=== PATIENT | female | born 1975 | race Caucasian/White ===

== ENCOUNTER → 2016-12-24 | Outpatient (CLI) | payer OTHER ==
[2016-12-24 13:25] LABS: Basophils # (A) 0.1 k/uL (0-0.2); Basophils % (A) 1 %; CH 30.1; CHCM 31.6; Eosinophils # (A) 0.2 k/uL (0-0.7); Eosinophils % (A) 2 %; HCT 44.4 % (34.0-46.0); HDW 2.42; HGB 13.9 gm/dL (11.4-16.0); Luc # (Auto) 0.11; Luc % (Auto) 1; Lymphocytes # (A) 2.8 k/uL (1.0-4.8); Lymphocytes % (A) 30 %; MCH 29.9 pg (25.0-35.0); MCHC 31.2 g/dL (31.0-37.0); MCV 95.9 fL (80.0-100.0); Mean Platelet Volume 6.7; Monocytes # (A) 0.4 k/uL (0-1.0); Monocytes % (A) 4 %; Neutrophils # (A) 5.8 k/uL (1.3-7.7); Neutrophils % (A) 62 %; RBC 4.63 m/uL (3.80-5.40); RDW 14.4 % (11.5-15.5); WBC 9.4 k/uL (3.8-10.6); WBC (Perox) 9.53
== END | disposition home or self-care (01) ==
LOC: LABPAT 13:01
PROVIDERS: ATTEND Obstetrics & Gynecology
DX: Z01.818 Encounter for other preprocedural examination (principal)
CPT/HCPCS: 85025

== ENCOUNTER 2017-01-03 06:50 | Day surgery (SDC) | payer OTHER ==
[2017-01-01 15:02] VITALS: BMI 36.8
--- NOTE | 2017-01-02 15:47 | P.HPOB ---
History of Present Illness H&P Date: 01/02/17 Chief Complaint: vulvar condyloma 41 year old presents for laser vaporization of condyloma. Review of Systems All systems: negative Constitutional: Denies chills, Denies fever Eyes: denies blurred vision, denies pain Ears, nose, mouth and throat: Denies headache, Denies sore throat Cardiovascular: Denies chest pain, Denies shortness of breath Respiratory: Denies cough Gastrointestinal: Denies abdominal pain, Denies diarrhea, Denies nausea, Denies vomiting Genitourinary: Denies dysuria, Denies hematuria Musculoskeletal: Denies myalgias Integumentary: Denies pruritus, Denies rash Neurological: Denies numbness, Denies weakness Psychiatric: Denies anxiety, Denies depression Endocrine: Denies fatigue, Denies weight change Past Medical History Past Medical History: Asthma, Neurologic Disorder (migraine) Additional Past Medical History / Comment(s): bursitis, chronic pain, GENITAL WARTS History of Any Multi-Drug Resistant Organisms: None Reported Past Surgical History: Cholecystectomy, Joint Replacement, Orthopedic Surgery, Tubal Ligation, Uterine Ablation Additional Past Surgical History / Comment(s): BILAT TKA. BILAT SCOPES. REVISION BILAT TKA. OATS PROCEDURE. COLONOSCOPIES Past Anesthesia/Blood Transfusion Reactions: No Reported Reaction Past Psychological History: No Psychological Hx Reported Smoking Status: Current every day smoker Past Alcohol Use History: None Reported Additional Past Alcohol Use History / Comment(s): SMOKES 1/2-1 PPD SINCE AGE 18 Past Drug Use History: None Reported - Past Family History Mother Family Medical History: Cancer Medications and Allergies Home Medications Medication Instructions Recorded Confirmed Type Fluticasone Nasal [place] [Flonase 2 spr EA NOSTRIL DAILY 01/01/17 01/01/17 History Nasal [place]] Loratadine [Loratadine] 10 mg PO DAILY 01/01/17 01/01/17 History Allergies Allergy/AdvReac Type Severity Reaction Status Date / Time desvenlafaxine succinate Allergy Hallucinati Verified 01/01/17 14:54 [From Pristiq] ons Penicillins Allergy Nausea & Verified 01/01/17 14:54 Vomiting Exam Osteopathic Statement: *. No significant issues noted on an osteopathic structural exam other than those noted in the History and Physical/Consult. HEart: RRR Lungs: CTAB ABdomen: soft, nontender Extremeties: neg shahida's Assessment and Plan (1) Genital warts Status: Acute Plan: 1. laser vaporization of condyloma
[~2017-01-03 06:50] MED LIST: DEXAMETHASONE SOD PHOSPHATE 10 MG/ML 1 ML VIAL IV ONE; HYDROmorphone 1 MG/ML 1 ML SYRINGE IVP PRN; LIDOCAINE 1% 20 ML VIAL (10MG/ML) FOR IV START INTRADERMA PRN; ONDANSETRON 4 MG/2 ML VIAL IVP ONE; Pre Op ABX Message 1 EACH MISC MISCELLANE ONE; SCOPOLAMINE 1.5MG/72HR PATCH TRANSDERM ONE
[2017-01-03 07:04] VITALS: RESP 16
[2017-01-03] MEDS: LACTATED RINGERS 1,000 ML IV SCH ×2 (07:14→09:56)
[2017-01-03] MEDS ORDERED: MIDAZOLAM 2 MG/2 ML VIAL ONE (08:12)
[2017-01-03] MEDS ORDERED: LIDOCAINE 1% INJ 10MG/ML (20 ML MDV) ONE (08:12)
[2017-01-03] MEDS ORDERED: SUCCINYLCHOLINE CHLORIDE 100 MG/5 ML SYR IV ONE (08:12)
[2017-01-03] MEDS ORDERED: fentaNYL (PF) 50 MCG/ML 2 ML AMP ONE (08:12)
[2017-01-03] MEDS ORDERED: PROPOFOL 10 MG/ML 20 ML VIAL IV ONE (08:12)
[2017-01-03] MEDS ORDERED: SILVER sulfADIAZINE Cream 400 GM 1 APPLIC APPLIC TOPICAL ONE (08:43)
[2017-01-03 09:33] VITALS: TEMP 97.8
[2017-01-03 10:59] VITALS: BP 118/75; PULSE 77
--- NOTE | 2017-01-07 12:51 | P.OP ---
Date of Procedure: 01/03/17 Preoperative Diagnosis: vulvar condyloma Postoperative Diagnosis: vulvar condyloma Procedure(s) Performed: laser ablation of vulvar condyloma and surgical excision of condyloma Anesthesia: ISATU Surgeon: Destinee Winston Estimated Blood Loss (ml): 10 Urine output (ml): 20 Pathology: other (condyloma) Condition: stable Disposition: PACU Operative Findings: multiple vulvar and perianal condyloma Description of Procedure: PAtient was taken to the operating room where general anesthesia was obtained without difficulty. She was prepped and draped in the normal sterile fashion, legs placed in candycane stirrups. Bladder was drained of all urine. Inspection of the vulva there were several condyloma along the clitoral scott, along both labia, an extreme amount in the perineal area between the vagina and the rectum, several along the rectum and 2 very large (2 cm) ones along the right buttock. The laser was set at a level of 5 W with pulse setting. The laser was directed towards any areas that showed condyloma and those areas were ablated down to the level of the subdermal tissue. Some areas did have some bleeding but this resolved. I did not ablate the areas that were at the level of the rectum and inside the rectum. There were 2 large, approximately 2 cm, condylomatous lesions along the right perianal area and right buttock. These were taken off using a scalpel. Stitches were placed for hemostasis and to close the skin. Silvadene cream was then placed over the entire vulva. Patient tolerated the procedure well, sponge and instrument counts are correct 2. She was taken to recovery in stable condition.
== END 2017-01-03 11:29 | disposition home or self-care (01) ==
LOC: OR 06:50
PROVIDERS: ATTEND Obstetrics & Gynecology
DX: A63.0 Anogenital (venereal) warts (principal); L72.0 Epidermal cyst; J45.909 Unspecified asthma, uncomplicated; G43.909 Migraine, unspecified, not intractable, without status migrainosus; G89.29 Other chronic pain; F17.200 Nicotine dependence, unspecified, uncomplicated; Z79.899 Other long term (current) drug therapy; Z88.0 Allergy status to penicillin; Z88.8 Allergy status to other drugs, medicaments and biological substances
CPT/HCPCS: 81025; 88305; 56515; 46922; 11402; J2250; J1100; J2405; J2001; J3010; J1170; J0330; J2704

== ENCOUNTER 2017-02-18 17:45 | Emergency (ER) | payer OTHER ==
[2017-02-18 18:03] VITALS: BP 133/88; PULSE 92; RESP 18; TEMP 97.4
--- NOTE | 2017-02-18 18:24 | ED ---
Upper Extremity HPI - General Chief Complaint: Extremity Injury, Upper Stated Complaint: R wrist pain Time Seen by Provider: 02/18/17 18:08 Source: patient Mode of arrival: ambulatory Limitations: no limitations - History of Present Illness Initial Comments: Patient is a 41-year-old right-handed white female presenting to the emergency department with chief complaint of right wrist pain. Patient states she has had right wrist pain on and off for years but recently the pain has increased to the point where she is having a difficult time holding onto a spoon when cooking secondary to the pain. Patient complains of occasional numbness to her right thumb and right index finger. Patient currently rates pain 8 out of 10, described as sharp and tingly, relief with rest, exacerbated with movement. Patient states that she she has seen Dr. Cheung many years ago for her right wrist pain without definite diagnosis. Patient states she has tried Motrin and Tylenol at home without significant relief. Patient denies recent illness, chills, fevers, nausea, vomiting, shortness of breath, or abdominal pain. Patient denies trauma or injury to her right upper extremity. 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 - Related Data Home Medications Medication Instructions Recorded Confirmed Fluticasone Nasal [place] [Flonase 2 spr EA NOSTRIL DAILY 01/01/17 01/03/17 Nasal [place]] Loratadine [Loratadine] 10 mg PO DAILY 01/01/17 01/03/17 Previous Rx's Medication Instructions Recorded Docusate [Colace] 100 mg PO BID #60 capsule 01/03/17 HYDROcodone/APAP 7.5-325MG [[place] 1 tab PO Q4H PRN #40 tab 01/03/17 7.5-325] Allergies Allergy/AdvReac Type Severity Reaction Status Date / Time desvenlafaxine succinate Allergy Hallucinati Verified 02/18/17 18:33 [From Pristiq] ons Penicillins Allergy Nausea & Verified 02/18/17 18:33 Vomiting Review of Systems ROS Statement: Those systems with pertinent positive or pertinent negative responses have been documented in the HPI. ROS Other: All systems not noted in ROS Statement are negative. Past Medical History Past Medical History: No Reported History Additional Past Medical History / Comment(s): bursitis, chronic pain History of Any Multi-Drug Resistant Organisms: None Reported Past Surgical History: Cholecystectomy, Joint Replacement, Orthopedic Surgery, Tubal Ligation Past Psychological History: Anxiety, Depression Smoking Status: Current every day smoker Past Alcohol Use History: Rare Past Drug Use History: None Reported General Exam Limitations: no limitations Head exam: Present: atraumatic, normocephalic, normal inspection Eye exam: Present: normal appearance ENT exam: Present: normal exam, mucous membranes moist Neck exam: Present: normal inspection, full ROM. Absent: tenderness, lymphadenopathy Respiratory exam: Present: normal lung sounds bilaterally. Absent: respiratory distress, wheezes, rales, rhonchi Cardiovascular Exam: Present: regular rate, normal rhythm, normal heart sounds. Absent: systolic murmur GI/Abdominal exam: Present: soft, normal bowel sounds Right Upper Arm exam: Present: normal inspection, full ROM. Absent: tenderness, swelling Elbow exam: Present: normal inspection, full ROM. Absent: tenderness, swelling Forearm Wrist exam: Present: normal inspection, full ROM, tenderness, crepitus. Absent: swelling, ecchymosis, erythema, tenderness over anatomical snuff box Hand Wrist exam: Present: normal inspection, full ROM, tenderness (Tenderness to lower wrist radial aspect.). Absent: swelling Neuro motor exam: Present: wrist extension intact, thumb opposition intact, thumb IP flexion intact, thumb adduction intact, fingers 2-5 abduction intact Neurosensory exam: Present: 2-point discrimination, radial nerve intact, ulnar nerve intact, median nerve intact Vascular: Present: radial pulse, brachial pulse, ulnar pulse. Absent: vascular compromise Back exam: Present: normal inspection Neurological exam: Present: alert, oriented X3, normal gait, other (No focal deficits noted) Psychiatric exam: Present: normal affect, normal mood Skin exam: Present: warm, dry, intact, normal color Course Vital Signs 02/18/17 17:56 Temperature 97.4 F L Pulse Rate 92 Respiratory 18 Rate Blood Pressure 133/88 O2 Sat by Pulse 96 Oximetry Medical Decision Making - Medical Decision Making Right wrist arthralgia. Right wrist x-ray negative. Patient instructed to follow-up with orthopedic service. Patient agrees with treatment plan. Discharge instructions and return parameters reviewed. - Radiology Data Radiology results: report reviewed Right wrist x-ray: No fracture or dislocation. Carpal bones are intact. No erosions. Negative right wrist exam. Disposition Clinical Impression: Wrist pain, chronic Disposition: HOME SELF-CARE Condition: Good Instructions: Arthralgia (ED) Additional Instructions: Follow-up with orthopedic service as directed. Continue Tylenol or Motrin for pain. Follow-up with primary care physician. Please return to the emergency department if symptoms do not improve or get worse. Referrals: Roberto Carlos Hudson DO [Primary Care Provider] - 1-2 days Rajan Walker MD [Medical Doctor] - 1-2 days Time of Disposition: 18:59
--- NOTE | 2017-02-18 18:51 | XR ---
EXAMINATION TYPE: XR wrist complete RT DATE OF EXAM: 02/18/2017 COMPARISON: NONE HISTORY: Pain TECHNIQUE: 4 views FINDINGS: I see no fracture nor dislocation. Carpal bones are intact. There are no erosions. IMPRESSION: Negative right wrist exam.
== END 2017-02-18 19:23 | disposition home or self-care (01) ==
LOC: EC 17:45
DX: M25.531 Pain in right wrist (principal); G89.29 Other chronic pain; F17.200 Nicotine dependence, unspecified, uncomplicated; Z79.899 Other long term (current) drug therapy; Z88.0 Allergy status to penicillin; Z88.8 Allergy status to other drugs, medicaments and biological substances
CPT/HCPCS: 99283

== ENCOUNTER 2017-05-02 22:25 | Emergency (ER) | payer OTHER ==
[2017-05-02] MEDS ORDERED: IPRATROPIUM-ALBUTEROL 3 ML NEB INHALATION STA (23:04)
--- NOTE | 2017-05-02 23:16 | ED ---
URI HPI - General Chief Complaint: Upper Respiratory Infection Stated Complaint: Headache/Cough Time Seen by Provider: 05/02/17 22:39 Source: patient Mode of arrival: ambulatory Limitations: no limitations - History of Present Illness Initial Comments: This patient is a 41-year-old woman who presents to be evaluated for a constellation of symptoms which include, coughing, congestion, feeling hot and cold, and what she is describing as diarrhea. Patient states that the symptoms have been getting worse over the past 2-3 days. She started with a nonproductive cough. She then also developed some congestion and noted a little bit of yellow sputum. Over the following couple days she has felt hot and cold at times and then 2 days ago she had some watery bowel movements. She states she has had 2 bowel movements today without any abdominal pain or without seeing any blood or tarry stools. Patient denies chest pain, dyspnea, palpitations. MD Complaint: cough, nasal congestion Onset/Timin -: days(s) Severity: moderate Consistency: constant Improves With: nothing Worsens With: nothing Associated Symptoms: cough, diarrhea Treatments Prior to Arrival: none - Related Data Home Medications Medication Instructions Recorded Confirmed Fluticasone Nasal [place] [Flonase 2 spr EA NOSTRIL DAILY 01/01/17 05/02/17 Nasal [place]] Loratadine [Loratadine] 10 mg PO DAILY 01/01/17 05/02/17 Previous Rx's Medication Instructions Recorded Albuterol Inhaler [Ventolin Hfa 1 - 2 puff INHALATION Q6HR PRN #1 05/02/17 Inhaler] inhaler Azithromycin [Zithromax Z-pack] 250 mg PO DIRECTED #6 tab 05/02/17 Allergies Allergy/AdvReac Type Severity Reaction Status Date / Time desvenlafaxine succinate Allergy Hallucinati Verified 05/02/17 23:00 [From Pristiq] ons Penicillins Allergy Nausea & Verified 05/02/17 23:00 Vomiting Review of Systems ROS Statement: Those systems with pertinent positive or pertinent negative responses have been documented in the HPI. ROS Other: All systems not noted in ROS Statement are negative. Constitutional: Reports: as per HPI, chills. Denies: fever ENT: Reports: congestion. Denies: ear pain, throat pain Respiratory: Reports: cough. Denies: dyspnea, wheezes, hemoptysis Cardiovascular: Denies: chest pain, palpitations, orthopnea, syncope Gastrointestinal: Reports: diarrhea. Denies: abdominal pain, vomiting, melena, hematochezia Genitourinary: Denies: dysuria, hematuria Musculoskeletal: Denies: back pain Skin: Denies: rash Neurological: Denies: headache, weakness, numbness Past Medical History Past Medical History: No Reported History Additional Past Medical History / Comment(s): seasonal allergies History of Any Multi-Drug Resistant Organisms: None Reported Past Surgical History: Cholecystectomy, Joint Replacement, Orthopedic Surgery, Tubal Ligation Past Psychological History: Anxiety, Depression Smoking Status: Current every day smoker Past Alcohol Use History: Rare Past Drug Use History: None Reported General Exam Limitations: no limitations General appearance: alert, in no apparent distress Head exam: Present: atraumatic, normocephalic Eye exam: Present: normal appearance. Absent: scleral icterus, conjunctival injection ENT exam: Present: normal oropharynx Respiratory exam: Present: wheezes. Absent: respiratory distress, rales, rhonchi, stridor, accessory muscle use, decreased breath sounds Cardiovascular Exam: Present: regular rate, normal rhythm, normal heart sounds. Absent: systolic murmur, diastolic murmur, rubs, gallop GI/Abdominal exam: Present: soft. Absent: tenderness, guarding, rebound, mass Back exam: Present: normal inspection. Absent: CVA tenderness (R), CVA tenderness (L) Neurological exam: Present: alert Skin exam: Present: warm, dry, intact, normal color. Absent: rash Course Vital Signs 05/02/17 05/02/17 05/02/17 22:36 23:23 23:34 Temperature 97.6 F Pulse Rate 97 100 98 Respiratory 18 Rate Blood Pressure 128/80 O2 Sat by Pulse 98 Oximetry Disposition Clinical Impression: Bronchitis Disposition: HOME SELF-CARE Condition: Fair Instructions: Acute Bronchitis (ED) Prescriptions: Albuterol Inhaler [Ventolin Hfa Inhaler] 1 - 2 puff INHALATION Q6HR PRN #1 inhaler PRN Reason: Wheezing Azithromycin [Zithromax Z-pack] 250 mg PO DIRECTED #6 tab Referrals: Roberto Carlos Hudson DO [Primary Care Provider] - 1-2 days
--- NOTE | 2017-05-02 23:47 | XR ---
EXAM: XR Chest, 2 Views CLINICAL HISTORY: Reason: cough TECHNIQUE: Frontal and lateral views of the chest. COMPARISON: 07/07/14 FINDINGS: Lungs: Suboptimal inspiratory effort is observed effort is again seen, likely resulting in bibasilar atelectatic changes. Bibasilar infiltrates cannot be definitively excluded. Pleural space: Unremarkable. No pneumothorax. Heart: Unremarkable. No cardiomegaly. Mediastinum: Unremarkable. Bones/joints: Unremarkable. IMPRESSION: Suboptimal inspiratory effort is observed effort, likely resulting in bibasilar atelectatic changes. Bibasilar infiltrates cannot be definitively excluded.
[2017-05-02] MEDS ORDERED: AZITHROMYCIN 500 MG TAB PO STA (23:55)
[2017-05-03 00:11] VITALS: BP 146/82; PULSE 92; RESP 20; TEMP 98.7
== END 2017-05-03 00:11 | disposition home or self-care (01) ==
LOC: EC 22:25
DX: J40 Bronchitis, not specified as acute or chronic (principal); R19.7 Diarrhea, unspecified; R05 Cough; R09.81 Nasal congestion; F32.9 Major depressive disorder, single episode, unspecified; F41.9 Anxiety disorder, unspecified; F17.200 Nicotine dependence, unspecified, uncomplicated; Z79.899 Other long term (current) drug therapy; Z79.51 Long term (current) use of inhaled steroids; Z88.0 Allergy status to penicillin; Z88.8 Allergy status to other drugs, medicaments and biological substances
CPT/HCPCS: 71020; 94640; 99283

== ENCOUNTER → 2017-11-14 | Outpatient (CLI) | payer OTHER ==
--- NOTE | 2017-11-15 10:20 | CT ---
EXAMINATION TYPE: CT abdomen pelvis w con DATE OF EXAM: 11/14/2017 COMPARISON: NONE HISTORY: RLQ pain CT DLP: 1535.6 mGycm Automated exposure control for dose reduction was used. CONTRAST: CT scan of the abdomen pelvis is performed with IV Contrast, patient injected with 100 mL of Omnipaqu e 300. FINDINGS- LUNG BASES-groundglass changes posteriorly bases most likely related to dependent atelectasis. LIVER/GB- No gross abnormality is appreciated. Postcholecystectomy changes noted. PANCREAS- No gross abnormality is seen. SPLEEN- No gross abnormality is seen. ADRENALS- No gross abnormality is seen. KIDNEYS/BLADDER- no hydronephrosis nephrolithiasis or renal mass. BOWEL- no bowel dilatation. Normal appendix. LYMPH NODES- No greater than 1cm abdominal or pelvic lymph nodes areappreciated. OSSEOUS STRUCTURES- No significant abnormality is seen. OTHER- there is a large adnexal cyst within the right lower quadrant measuring 4.3 cm. There is also a 2.3 cm left adnexal cyst. Aorta of normal caliber with minimal atherosclerotic changes. IMPRESSION- 1. Large right adnexal cyst measuring 4.3 cm likely ovarian correlate with ultrasound. 2.3 cm left ad nexal cyst also likely ovarian. 2. Normal appendix.
== END | disposition home or self-care (01) ==
LOC: RADCTMAIN 16:13
PROVIDERS: ATTEND Surgery Plastic and Reconstructive Surgery
DX: N83.8 Other noninflammatory disorders of ovary, fallopian tube and broad ligament (principal)
CPT/HCPCS: 74177; Q9967

== ENCOUNTER 2017-11-21 09:16 | Day surgery (SDC) | payer OTHER ==
[2017-11-18 16:06] VITALS: BMI 39.6
--- NOTE | 2017-11-21 07:02 | P.GSHP ---
History of Present Illness H&P Date: 11/21/17 CHIEF COMPLAINT: GERD and change in bowel habits HISTORY OF PRESENT ILLNESS: The patient is a 42-year-old female who presents with gastroesophageal reflux disease and change in bowel habits Upper and lower endoscopy were offered for further evaluation and management. PAST MEDICAL HISTORY: Please see list. PAST SURGICAL HISTORY: Please see list. MEDICATIONS: Please see list. ALLERGIES: Please see list. SOCIAL HISTORY: No illicit drug use FAMILY HISTORY: No reports of Crohn disease or ulcerative colitis. REVIEW OF ORGAN SYSTEMS: CONSTITUTIONAL: No reports of fevers or chills. PHYSICAL EXAM: VITAL SIGNS: Stable GENERAL: Well-developed pleasant in no acute distress. HEENT: No scleral icterus. Extraocular movements grossly intact. Moist buccal mucosa. NECK: Supple without lymphadenopathy. CHEST: Unlabored respirations. Equal bilateral excursions. CARDIOVASCULAR: Regular rate and rhythm. Distal 2+ pulses. ABDOMEN: Soft, nondistended. MUSCULOSKELETAL: No clubbing, cyanosis, or edema. ASSESSMENT: 1. Gastroesophageal reflux disease 2. Change in bowel habits PLAN: 1. Recommend proceeding with an upper and lower endoscopy Past Medical History Past Medical History: No Reported History Additional Past Medical History / Comment(s): seasonal allergies, blood in her stool. History of Any Multi-Drug Resistant Organisms: None Reported Past Surgical History: Cholecystectomy, Joint Replacement, Orthopedic Surgery, Tubal Ligation Additional Past Surgical History / Comment(s): Bilat knee replacements and Revisions of bilat knees. Past Anesthesia/Blood Transfusion Reactions: No Reported Reaction Smoking Status: Current every day smoker - Past Family History Mother Family Medical History: Cancer Additional Family Medical History / Comment(s): Colon Brother(s) Family Medical History: Deep Vein Thrombosis (DVT) Medications and Allergies Home Medications Medication Instructions Recorded Confirmed Type No Known Home Medications [No 11/18/17 11/18/17 History Known Home Medications] Allergies Allergy/AdvReac Type Severity Reaction Status Date / Time desvenlafaxine succinate Allergy Hallucinati Verified 11/18/17 15:51 [From Pristiq] ons Penicillins Allergy Nausea & Verified 11/18/17 15:51 Vomiting
[~2017-11-21 09:16] MED LIST changes: -DEXAMETHASONE SOD PHOSPHATE 10 MG/ML 1 ML VIAL IV ONE; -HYDROmorphone 1 MG/ML 1 ML SYRINGE IVP PRN; +LACTATED RINGERS 1,000 ML IV SCH; -LIDOCAINE 1% 20 ML VIAL (10MG/ML) FOR IV START INTRADERMA PRN; -ONDANSETRON 4 MG/2 ML VIAL IVP ONE; -Pre Op ABX Message 1 EACH MISC MISCELLANE ONE; -SCOPOLAMINE 1.5MG/72HR PATCH TRANSDERM ONE
[2017-11-21 10:45] VITALS: RESP 16; TEMP 98.2
[2017-11-21] MEDS ORDERED: LIDOCAINE 1% 20 ML VIAL (10MG/ML) FOR IV START INTRADERMA ONE (10:55)
[2017-11-21] MEDS ORDERED: PROPOFOL 10 MG/ML 20 ML VIAL IV ONE (11:00)
[2017-11-21] MEDS ORDERED: LIDOCAINE 1% INJ 10MG/ML (20 ML MDV) ONE (11:00)
--- NOTE | 2017-11-21 11:13 | P.PCN ---
Date of Procedure: 11/21/17 Description of Procedure: PREOPERATIVE DIAGNOSIS: Gastroesophageal reflux disease. Morbid obesity. POSTOPERATIVE DIAGNOSIS: Morbid obesity. Gastritis. Gastroesophageal reflux disease. OPERATION: Esophagogastroduodenoscopy with biopsies along antrum. SURGEON: Rachel Solitario MD ANESTHESIA: MAC. INDICATIONS: The patient is a 42-year-old female who presents with a history of reflux disease. Benefits and risks of the procedure were described. Informed consent was obtained. DESCRIPTION: The patient was brought into the endoscopy suite and laid in the left lateral decubitus position. An Olympus gastroscope was passed along the posterior oropharynx down to the distal esophagus where the squamocolumnar junction was encountered at 40 cm from the incisors. The stomach was entered and no bile reflux was found. Additional findings are listed below. Biopsies with cold forceps were obtained of the antrum. The first through third portion of the duodenum was examined and unremarkable. Retroflexion of the scope confirmed Hill grade 2 lower esophageal valve. The squamocolumnar junction demostrated early LA grade A erosive esophagitis. The stomach was desufflated. The patient tolerated the procedure well. FINDINGS: Squamocolumnar junction 40 cm from the incisors. Diaphragmatic hiatus at 40 cm. Hill grade 2 lower esophageal valve. LA grade A erosive esophagitis. No active duodenitis. Chronic superficial gastritis the antrum. RECOMMENDATIONS: Upper endoscopy as needed.
--- NOTE | 2017-11-21 11:32 | P.PCN ---
Date of Procedure: 11/21/17 Description of Procedure: PREOPERATIVE DIAGNOSIS: Change in bowel habits Chronic diarrhea Personal history of polyps POSTOPERATIVE DIAGNOSIS: Change in bowel habits Chronic diarrhea Personal history of polyps Internal hemorrhoids, grade 3 Prolapsed external hemorrhoids Diverticulosis, scattered. Polyp, sigmoid colon OPERATION: Colonoscopy to the ileocecal valve and appendiceal orifice. Colonoscopy cold forceps biopsies, random Colonoscopy cold forceps biopsies at 20 cm from the anal verge SURGEON: Rachel Solitario MD. ANESTHESIA: MAC. INDICATIONS: The patient is a 42-year-old female who presents with change in bowel habits. Benefits and risks were described and informed consent was obtained. DESCRIPTION OF PROCEDURE: The patient had undergone Gatorade, MiraLAX and Dulcolax prep. She had been brought into the operating room and laid in the left lateral decubitus position. After adequate intravenous sedation, the rectum was examined with 2% lidocaine jelly. No external hemorrhoids were encountered. The rectal tone was within normal limits. Moderate prolapsed external hemorrhoids grade 4 was found without bleeding. No lesions were palpated in the rectal vault. An Olympus colonoscope was advanced until the ileocecal valve and appendiceal orifice were clearly viewed. The prep was excellent with clear visualization of the mucosal folds. The scope was removed with visualization of each mucosal fold. Scattered diverticulosis was encountered. Random biopsies were obtained throughout the colon for change in bowel habits to evaluate for colitis. Three (3) mm hyperplastic polyp was cold forceps biopsy to completion. Retroflexion of the scope demonstrated grade 3 internal hemorrhoids without active bleeding or inflammation. The colon was desufflated. The patient had tolerated the procedure well. Withdrawal time was over 6 minutes. FINDINGS: Internal hemorrhoids, grade 3 External prolapsed hemorrhoids, grade 4 No arteriovenous malformations. Sigmoid polyp, 3 mm removed Scattered diverticulosis. RECOMMENDATIONS: Lower endoscopy per screening guidelines. Plan - Discharge Summary New Discharge Prescriptions: No Action No Known Home Medications [No Known Home Medications] Discharge Medication List No Known Home Medications [No Known Home Medications] 11/18/17 [History]
[2017-11-21 11:51] VITALS: BP 126/87; PULSE 73
== END 2017-11-21 12:05 | disposition home or self-care (01) ==
LOC: ORWHC2ENDO 09:16
PROVIDERS: ATTEND Surgery Plastic and Reconstructive Surgery
DX: K29.30 Chronic superficial gastritis without bleeding (principal); K63.5 Polyp of colon; K64.2 Third degree hemorrhoids; K64.8 Other hemorrhoids; K57.30 Diverticulosis of large intestine without perforation or abscess without bleeding; K21.0 Gastro-esophageal reflux disease with esophagitis; K22.10 Ulcer of esophagus without bleeding; E66.01 Morbid (severe) obesity due to excess calories; Z68.39 Body mass index [BMI] 39.0-39.9, adult; K52.9 Noninfective gastroenteritis and colitis, unspecified; Z86.010 Personal history of colon polyps; Z88.8 Allergy status to other drugs, medicaments and biological substances; Z88.0 Allergy status to penicillin; F17.210 Nicotine dependence, cigarettes, uncomplicated
CPT/HCPCS: 88305; 45380; 43239; J2001; J2704

== ENCOUNTER → 2018-04-23 | Outpatient (CLI) | payer OTHER ==
[2018-04-23 18:54] LABS: Iron Saturation 66.55 (12.00-45.00)
== END | disposition home or self-care (01) ==
LOC: LABWHC1 14:23
PROVIDERS: ATTEND Surgery Plastic and Reconstructive Surgery
DX: K25.9 Gastric ulcer, unspecified as acute or chronic, without hemorrhage or perforation (principal)
CPT/HCPCS: 36415; 82728; 83540; 83550

== ENCOUNTER 2018-08-06 21:17 | Emergency (ER) | payer OTHER ==
[2018-08-06 21:36] VITALS: RESP 18
--- NOTE | 2018-08-06 22:00 | XR ---
PROCEDURE: XR shoulder complete LT - 3V DATE AND TIME: 08/06/2018 9:49 PM CLINICAL INDICATION: PHH; Pain TECHNIQUE: Department protocol COMPARISON: None FINDINGS: There is no fracture or malalignment. The soft tissues are unremarkable. IMPRESSION: NO ACUTE PROCESS.
--- NOTE | 2018-08-06 22:41 | ED ---
General Adult HPI - General Chief complaint: Extremity Problem,Nontraumatic Stated complaint: Should pain Source: patient, RN notes reviewed, old records reviewed Mode of arrival: ambulatory Limitations: no limitations - History of Present Illness Initial comments: 42-year-old female with past history of hypertension patient presents in ED with 3 weeks of pain in left shoulder. Patient denies any recent fall or trauma. Patient states that the pain is worse overhead movements. Patient denies any chest pain, shortness of breath abdominal pain, nausea vomiting diarrhea, fever or chills. 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 Patient denies fever chills, nausea vomiting diarrhea, chest pain, shortness of breath, chest pain, abdominal pain, dysuria. Systemic: Pt denies fatigue, myalgia, fever/chills, rash. Pt denies weakness, night sweats, weight loss. Neuro: Pt denies headache, visual disturbances, syncope or pre-syncope. HEENT: Pt denies ocular discharge or irritation, otalgia, rhinorrhea, pharyngitis or notable lymphadenopathy. Cardiopulmonary: Pt denies chest pain, SOB, heart palpitations, dyspnea on exertion. Abdominal/GI: Pt denies abdominal pain, n/v/d. : Pt denies dysuria, burning w/ urination, frequency/urgency. Denies new onset urinary or bowel incontinence. MSK: Pt denies myalgia, loss of strength or function in extremities. Neuro: Pt denies new onset weakness, paresthesias. - Related Data Previous Rx's Medication Instructions Recorded Ibuprofen [Motrin] 600 mg PO Q6HR PRN #20 day 08/06/18 Allergies Allergy/AdvReac Type Severity Reaction Status Date / Time desvenlafaxine succinate Allergy Hallucinati Verified 08/06/18 21:36 [From Pristiq] ons Penicillins Allergy Nausea & Verified 08/06/18 21:36 Vomiting Review of Systems ROS Statement: Those systems with pertinent positive or pertinent negative responses have been documented in the HPI. ROS Other: All systems not noted in ROS Statement are negative. Past Medical History Past Medical History: No Reported History Additional Past Medical History / Comment(s): seasonal allergies History of Any Multi-Drug Resistant Organisms: None Reported Past Surgical History: Cholecystectomy, Joint Replacement, Orthopedic Surgery, Tubal Ligation Past Psychological History: Anxiety, Depression Smoking Status: Current every day smoker Past Alcohol Use History: None Reported Past Drug Use History: None Reported General Exam - General Exam Comments Initial Comments: Constitutional: NAD, AOX3, Pt has pleasant affect. HEENT: NC/AT, trachea midline, neck supple, no lymphadenopathy. Posterior pharynx non erythematous, without exudates. External ears appear normal, without discharge. Mucous membranes moist. Eyes PERRLA, EOM intact. There is no scleral icterus. No pallor noted. Cardiopulmonary: RRR, no murmurs, rubs or gallops, no JVD noted. Lungs CTAB in anterior and posterior drummond. No peripheral edema. Abdominal exam: Abdomen soft and non-distended. Abdomen non-tender to palpation in all 4 quadrants. Bowel sounds active in LLQ. No hepatosplenomegaly. Neuro: CN II-XII grossly intact. No nuchal rigidity. MSK: Empty can test positive on left side, painful arc positive in left side, patient has pain with overhead movement. Patient neurovascularly intact in upper extremities bilaterally. Left shoulder nontender to palpation. No erythema, cellulitis, drainage noted on left shoulder region. No posterior calf tenderness bilaterally, homans sign negative bilaterally. Posterior tibialis and radial pulse +2 bilaterally. Limitations: no limitations Course Vital Signs 08/06/18 08/06/18 21:33 23:04 Temperature 98.2 F 97.9 F Pulse Rate 80 84 Respiratory 18 18 Rate Blood Pressure 130/92 138/79 O2 Sat by Pulse 100 99 Oximetry Medical Decision Making - Medical Decision Making 43-year-old female patient with a history of atraumatic left shoulder pain. Patient has pain with overhead movements. Pain is reproducible with empty can test, painful arc, limited overhead range of motion secondary to pain. Plain films of left shoulder did not display any acute abnormality. Patient likely has a rotator cuff impingement. Patient discharged with ibuprofen, Tylenol 3 starter pack. Patient given referral to orthopedic follow-up. Patient to follow with PCP in 1-2 days. Patient to return to ED if any new signs or symptoms develop including worsening pain, fever or chills, redness, discharge, any other new symptoms. Case discussed with Dr. Kapoor. Disposition Clinical Impression: Shoulder arthralgia Disposition: HOME SELF-CARE Condition: Good Instructions: Rotator Cuff Injury (ED), Rotator Cuff Tendinitis (ED) Additional Instructions: Patient to adhere to previously discussed treatment plan and will take medication(s) as directed. Patient to follow up with PCP in 1-2 days. Patient to return to ED if symptoms do not improve. Prescriptions: Ibuprofen [Motrin] 600 mg PO Q6HR PRN #20 day PRN Reason: Pain Is patient prescribed a controlled substance at d/c from ED?: No Referrals: None,Stated [Primary Care Provider] - 1-2 days Rajan Walker MD [Medical Doctor] - 1-2 days Time of Disposition: 22:40
[2018-08-06] MEDS ORDERED: ACET/COD 300 MG/30 MG STARTER PACK 6 TAB BTL PO STA (22:55)
[2018-08-06 23:05] VITALS: BP 138/79; PULSE 84; TEMP 97.9
== END 2018-08-06 23:05 | disposition home or self-care (01) ==
LOC: EC 21:17
DX: M25.512 Pain in left shoulder (principal); F17.200 Nicotine dependence, unspecified, uncomplicated; Z88.0 Allergy status to penicillin; Z88.8 Allergy status to other drugs, medicaments and biological substances
CPT/HCPCS: 99284

== ENCOUNTER → 2018-08-26 | Outpatient (CLI) | payer OTHER ==
[2018-08-26 17:41] LABS: Basophils % (A) 0 %; Eosinophils # (A) 0.3 k/uL (0-0.7); Eosinophils % (A) 2 %; HCT 46.3 % (34.0-46.0); HGB 14.6 gm/dL (11.4-16.0); Lymphocytes # (A) 3.5 k/uL (1.0-4.8); Lymphocytes % (A) 30 %; MCH 28.3 pg (25.0-35.0); MCHC 31.5 g/dL (31.0-37.0); MCV 89.7 fL (80.0-100.0); Mean Platelet Volume 7.1; Monocytes # (A) 0.4 k/uL (0-1.0); Monocytes % (A) 3 %; Neutrophils # (A) 7.4 k/uL (1.3-7.7); Neutrophils % (A) 63 %; Platelet Count 261 k/uL (150-450); RBC 5.16 m/uL (3.80-5.40); RDW 14.1 % (11.5-15.5); WBC 11.7 k/uL (3.8-10.6)
== END | disposition home or self-care (01) ==
LOC: LABPAT 16:58
PROVIDERS: ATTEND Anesthesiology
DX: Z01.818 Encounter for other preprocedural examination (principal); Z01.812 Encounter for preprocedural laboratory examination
CPT/HCPCS: 36415; 85025; 93005

== ENCOUNTER 2018-08-27 07:54 | Day surgery (SDC) | payer OTHER ==
[2018-08-20 13:38] VITALS: BMI 37.6
--- NOTE | 2018-08-27 07:49 | P.GSHP ---
History of Present Illness H&P Date: 08/27/18 CHIEF COMPLAINT: Incisional hernia. HISTORY OF PRESENT ILLNESS: The patient is a 42-year-old female who presents with a history of incisional hernia of the upper abdomen. Findings were consistent with possible incisional hernia. Now she presents for further evaluation and management. PAST MEDICAL HISTORY: Please see list. PAST SURGICAL HISTORY: Please see list. MEDICATIONS: Please see list. ALLERGIES: Please see list. SOCIAL HISTORY: No illicit drug use FAMILY HISTORY: No reports of Crohn disease or ulcerative colitis. REVIEW OF ORGAN SYSTEMS: CONSTITUTIONAL: No reports of fevers or chills. GI: Denies any blood in stools or constipation. PHYSICAL EXAM: VITAL SIGNS: Stable GENERAL: Well-developed pleasant female in no acute distress. HEENT: No scleral icterus. Extraocular movements grossly intact. Moist buccal mucosa. NECK: Supple without lymphadenopathy. CHEST: Unlabored respirations. Equal bilateral excursions. CARDIOVASCULAR: Regular rate and rhythm. Distal 2+ pulses. ABDOMEN: Soft, nondistended. Upper abdomen incisional hernia Protuberant. MUSCULOSKELETAL: No clubbing, cyanosis, or edema. ASSESSMENT: 1. Incisional ventral hernia. 2. Benign skin lesion upper abdomen PLAN: 1. Recommend proceeding with robotic ventral hernia repair with mesh. 2. Benefits and risks of surgical intervention was discussed including possibility of open technique. 3. DVT prophylaxis. 4. Antibiotic prophylaxis. 5. We'll proceed with excision of painful skin lesion upper abdomen Past Medical History Past Medical History: Hypertension Additional Past Medical History / Comment(s): hx ulcer, rt shoulder pain for past month-cause unknown History of Any Multi-Drug Resistant Organisms: None Reported Past Surgical History: Cholecystectomy, Joint Replacement, Orthopedic Surgery, Tubal Ligation, Uterine Ablation Additional Past Surgical History / Comment(s): jodi knee arthroscopy, jodi knee replacement, jodi knee revisions, rt knee OATS procedure, Past Anesthesia/Blood Transfusion Reactions: Motion Sickness Smoking Status: Current every day smoker - Past Family History Mother Family Medical History: Cancer Medications and Allergies Home Medications Medication Instructions Recorded Confirmed Type DULoxetine HCL [Cymbalta] 30 mg PO DAILY 08/20/18 08/20/18 History Loratadine-Pseudoeph 10-240 mg 1 each PO BID 08/20/18 08/20/18 History [Claritin-D 24 Hr] Metoprolol Succinate (ER) [Toprol 25 mg PO DAILY 12/20/18 12/20/18 History Xl] Mobic(Dose Unknown) 1 tab PO DAILY 08/20/18 08/20/18 History Omeprazole 40 mg PO DAILY 08/20/18 08/20/18 History Allergies Allergy/AdvReac Type Severity Reaction Status Date / Time desvenlafaxine succinate Allergy Hallucinati Verified 08/20/18 13:25 [From Pristiq] ons Penicillins Allergy Nausea & Verified 08/20/18 13:25 Vomiting
[~2018-08-27 07:54] MED LIST changes: +ACETAMINOPHEN IV (For NPO) 1,000 MG in EMPTY BAG 1 BAG IVPB ONE; +HEPARIN SODIUM,PORCINE 5,000 UNIT/ML 1 ML VIAL SQ ONE; -LACTATED RINGERS 1,000 ML IV SCH; +ceFAZolin IN SWFI 2 GM/20 ML SYRINGE IVP ONE
[2018-08-27 08:19] VITALS: TEMP 97.4
[2018-08-27] MEDS ORDERED: LACTATED RINGERS 1,000 ML IV ONE ×2 (08:24→09:40)
[2018-08-27] MEDS ORDERED: DEXAMETHASONE SOD PHOS (MDV) 100 MG/10 ML VIAL IVP ONE (08:25)
[2018-08-27] MEDS ORDERED: ONDANSETRON 4 MG/2 ML VIAL IVP ONE (08:25)
[2018-08-27 08:56] LABS: ALT 20 U/L (9-52); AST 18 U/L (14-36); Albumin 4.1 g/dL (3.5-5.0); Alkaline Phosphatase 92 U/L (38-126); Anion Gap 10 mmol/L; Blood Urea Nitrogen 8 mg/dL (7-17); Calcium 9.6 mg/dL (8.4-10.2); Carbon Dioxide 23 mmol/L (22-30); Chloride 107 mmol/L (98-107); Glucose 103 mg/dL (74-99); Potassium 3.9 mmol/L (3.5-5.1); Sodium 140 mmol/L (137-145); Total Bilirubin 0.5 mg/dL (0.2-1.3); Total Protein 7.9 g/dL (6.3-8.2)
[2018-08-27] MEDS ORDERED: fentaNYL (PF) 50 MCG/ML 2 ML AMP ONE (08:58)
[2018-08-27] MEDS ORDERED: GLYCOPYRROLATE 0.2 MG/ML 2 ML VIAL ONE (08:58)
[2018-08-27] MEDS ORDERED: NEOSTIGMINE 1 MG/ML 10 ML VIAL ONE (08:58)
[2018-08-27] MEDS ORDERED: MIDAZOLAM 2 MG/2 ML VIAL ONE (08:58)
[2018-08-27] MEDS ORDERED: SUCCINYLCHOLINE CHLORIDE 100 MG/5 ML SYR IV ONE (08:58)
[2018-08-27] MEDS ORDERED: PROPOFOL 10 MG/ML 20 ML VIAL IV ONE (08:58)
[2018-08-27] MEDS ORDERED: ROCURONIUM BROMIDE 10 MG/ML 10 ML VIAL IV ONE (08:58)
[2018-08-27] MEDS ORDERED: LIDOCAINE 1% INJ 10MG/ML (20 ML MDV) ONE (08:58)
[2018-08-27] MEDS ORDERED: BUPIVACAIN-EPI 0.25%-1:200,000 30 ML VIAL SQ ONE (09:26)
[2018-08-27 10:16] VITALS: RESP 16
--- NOTE | 2018-08-27 10:16 | P.OP ---
Date of Procedure: 08/27/18 Description of Procedure: SURGEON: RCAHEL SOLITARIO MD PREOPERATIVE DIAGNOSES: 1. Epigastric abdominal pain 2. Previous history of laparoscopic cholecystectomy 3. Incisional hernia, epigastrium 4. Morbid obesity due to excess calories, BMI 37.7 5. Painful benign lesion epigastrium POSTOPERATIVE DIAGNOSES: 1. Epigastric abdominal pain 2. Previous history of laparoscopic cholecystectomy 3. Adhesions, epigastrium 4. Morbid obesity due to excess calories, BMI 37.7 5. Painful benign lesion epigastrium, 6 x 2 cm OPERATION: 1. Robotic-assisted da Nancy Xi laparoscopic with lysis of adhesions 2. Excision of benign skin lesion epigastrium, 6 x 2 cm 3. Intermediate closure, epigastrium abdominal wall incision, 7 cm ESTIMATED BLOOD LOSS: 5 mL. SPECIMENS REMOVED: Benign skin lesion, epigastrium COMPLICATIONS: None. OPERATIVE FINDINGS: 1. No ventral hernias identified. 2. Adhesions along the epigastrium 3. Benign skin lesion epigastrium 6 x 2 cm INDICATIONS: The patient is a 42-year-old female who presents with epigastric abdominal pain and possible incisional hernia. Surgical intervention with diagnostic laparoscopy, possible ventral hernia repair were described. Informed consent was obtained. Robotic assisted laparoscopic approach was described. Benefits and risks of the procedure including but not limited to bleeding, infection was described. Informed consent was obtained. DESCRIPTION OF PROCEDURE: Patient was brought to the operating room, placed in supine position. After general induction, the abdomen had been prepped and draped in standard sterile fashion. The robotic da Nancy XI system was primed. After a timeout protocol was performed, the patient had been prepped and draped in standard sterile fashion. The robot was docked along the left lateral abdomen. The patient was repositioned in with left side up. Please note prior to docking of the robot; however, a 5 mm 0 degrees laparoscopic trocar entry was performed along the left upper quadrant. Next, two 8 mm robotic ports were placed along the left lateral abdominal wall. The camera 8-mm port was maintained along right mid-lateral abdomen. The 8 mm port was placed along the left upper abdominal wall was exchanged from the 5 mm port. Please note that the ports were placed at least 10 to 15 cm away from the target anatomy. Using a grasper for arm 2, including scissor for arm 1, the robotic system was docked and primed as described. Instruments were interchanged by the store assistant including Bovie cautery scissors. I had sat at the console. The falciform ligament was explored consistent with the patient's area of pain and previous incision subxiphoid. Adhesions along the epigastric abdominal wall was addressed using scissors. No evidence of incisional hernia was identified. The rest of the abdomen was unremarkable for small bowel pathology. No port site hernias were identified. No evidence of small bowel obstruction was found. The robot was undocked. All pneumoperitoneum instruments were evacuated from the abdominal cavity. The incisions were reapproximated using 4-0 Monocryl in an interrupted subcuticular fashion. Please note along the trocar sites, local anesthetic was placed as a field block prior to insertion of all instruments. Attention was brought to the skin of the epigastrium for painful lesion 6 x 2 cm was excised in elliptical fashion using a #15 blade. The incision was deepened to subcutaneous tissue which was excised. The incision was closed using 0 Vicryl for the deep subcutaneous tissue. The skin was closed using 4-0 Monocryl in a running fashion. Exofin tape including glue was placed along the skin after closing all incisions with dilute hydrogen peroxide. Exofin was applied to the rest of the incisions. At the end of the procedure needle, sponge, and instrument count had been verified correct by the surgical coordinator. The patient was transferred to postanesthesia care unit in stable condition. Plan - Discharge Summary New Discharge Prescriptions: New HYDROcodone/APAP 5-325MG [[place] 5-325] 1 tab PO Q4HR PRN 3 Days #18 tab PRN Reason: Pain No Action Metoprolol Succinate (ER) [Toprol Xl] 25 mg PO DAILY Mobic(Dose Unknown) 1 tab PO DAILY DULoxetine HCL [Cymbalta] 30 mg PO DAILY Omeprazole 40 mg PO DAILY Loratadine-Pseudoeph 10-240 mg [Claritin-D 24 Hr] 1 each PO BID Discharge Medication List DULoxetine HCL [Cymbalta] 30 mg PO DAILY 08/20/18 [History] Loratadine-Pseudoeph 10-240 mg [Claritin-D 24 Hr] 1 each PO BID 08/20/18 [ History] Metoprolol Succinate (ER) [Toprol Xl] 25 mg PO DAILY 08/20/18 [History] Mobic(Dose Unknown) 1 tab PO DAILY 08/20/18 [History] Omeprazole 40 mg PO DAILY 08/20/18 [History] HYDROcodone/APAP 5-325MG [[place] 5-325] 1 tab PO Q4HR PRN 3 Days #18 tab [Rx] Follow up Appointment(s)/Referral(s): Rachel Solitario MD [STAFF PHYSICIAN] - 09/02/18 Patient Instructions/Handouts: Abdominal Binder (DC) Activity/Diet/Wound Care/Special Instructions: No lifting over 4 pounds for 1 week. May shower. No bath tub soaks. Her abdominal binder for comfort. Keep dressing on until 09-02-2018 Discharge Disposition: HOME SELF-CARE
[2018-08-27] MEDS ORDERED: HYDROmorphone 1 MG/ML 1 ML SYRINGE IVP ONE (10:37)
[2018-08-27] MEDS ORDERED: HYDROcodone/APAP 5-325MG 1 EACH TAB PO ONE (11:59)
[2018-08-27 12:21] VITALS: BP 130/98; PULSE 85
== END 2018-08-27 12:35 | disposition home or self-care (01) ==
LOC: OR 07:54
PROVIDERS: ATTEND Surgery Plastic and Reconstructive Surgery
DX: K43.2 Incisional hernia without obstruction or gangrene (principal); K21.9 Gastro-esophageal reflux disease without esophagitis; E66.01 Morbid (severe) obesity due to excess calories; Z68.37 Body mass index [BMI] 37.0-37.9, adult; Z90.49 Acquired absence of other specified parts of digestive tract; L73.9 Follicular disorder, unspecified; K66.0 Peritoneal adhesions (postprocedural) (postinfection); I10 Essential (primary) hypertension; F17.200 Nicotine dependence, unspecified, uncomplicated; Z79.1 Long term (current) use of non-steroidal anti-inflammatories (NSAID); Z79.899 Other long term (current) drug therapy; Z88.0 Allergy status to penicillin; Z88.8 Allergy status to other drugs, medicaments and biological substances
CPT/HCPCS: 11406; 47562; S2900; 80053; 81025; 88305

== ENCOUNTER → 2019-02-26 | Outpatient (CLI) | payer OTHER ==
--- NOTE | 2019-02-27 13:53 | US ---
EXAMINATION TYPE: US pelvic complete DATE OF EXAM: 02/26/2019 COMPARISON: US 12/17/2017, CT 11/14/2017 CLINICAL HISTORY: N94.10 DYSPAREUNIA. TECHNIQUE: . Transabdominal sonographic images of the pelvis were acquired. Date of LMP: Ablation 10 years ago EXAM MEASUREMENTS: Uterus: 7.3 x 2.8 x 4.2 cm Endometrial Stripe: 0.2 cm Right Ovary: 2.3 x 1.9 x 2.2 cm Left Ovary: 2.3 x 1.2 x 1.1 cm 1. Uterus: Anteverted wnl 2. Endometrium: wnl 3. Right Ovary: Dominant follicle is seen measuring 1.8 x 1.0 x 1.9 cm , physiologic 4. Left Ovary: wnl 5. Bilateral Adnexa: wnl 6. Posterior cul-de-sac: wnl IMPRESSION: Unremarkable pelvic ultrasound. Physiologic follicular changes of the ovaries.
== END | disposition home or self-care (01) ==
LOC: RADUSWWP 14:54
PROVIDERS: ATTEND Obstetrics & Gynecology
DX: N94.10 Unspecified dyspareunia (principal)
CPT/HCPCS: 76856

== ENCOUNTER 2019-04-15 10:23 | Day surgery (SDC) | payer OTHER ==
[2019-04-09 11:30] VITALS: BMI 37.2
--- NOTE | 2019-04-14 17:36 | P.HPOB ---
History of Present Illness H&P Date: 04/14/19 Chief Complaint: Persistent low-grade Pap 43-year-old presents for loop electrocautery excision procedure. She has been followed for low-grade Pap smears for greater than 2 years. Colposcopies have also been low-grade. Review of Systems All systems: negative Constitutional: Denies chills, Denies fever Eyes: denies blurred vision, denies pain Ears, nose, mouth and throat: Denies headache, Denies sore throat Cardiovascular: Denies chest pain, Denies shortness of breath Respiratory: Denies cough Gastrointestinal: Denies abdominal pain, Denies diarrhea, Denies nausea, Denies vomiting Genitourinary: Denies dysuria, Denies hematuria Musculoskeletal: Denies myalgias Integumentary: Denies pruritus, Denies rash Neurological: Denies numbness, Denies weakness Psychiatric: Denies anxiety, Denies depression Endocrine: Denies fatigue, Denies weight change Past Medical History Past Medical History: GERD/Reflux, Hypertension Additional Past Medical History / Comment(s): seasonal allergies. LGSIL History of Any Multi-Drug Resistant Organisms: None Reported Past Surgical History: Cholecystectomy, Hernia Repair, Joint Replacement, Orthopedic Surgery, Tubal Ligation, Uterine Ablation Additional Past Surgical History / Comment(s): BOTH KNEE SX. BILAT TKA WITH REVISIONS X 2 Past Anesthesia/Blood Transfusion Reactions: No Reported Reaction Smoking Status: Current every day smoker - Past Family History Mother Family Medical History: Cancer Medications and Allergies Home Medications Medication Instructions Recorded Confirmed Type DULoxetine HCL [Cymbalta] 30 mg PO DAILY 08/20/18 04/13/19 History Loratadine-Pseudoeph 10-240 mg 1 each PO BID 08/20/18 04/13/19 History [Claritin-D 24 Hr] Metoprolol Succinate (ER) [Toprol 25 mg PO DAILY 08/20/18 04/13/19 History Xl] Mobic(Dose Unknown) 1 tab PO DAILY 08/20/18 04/13/19 History Omeprazole 40 mg PO DAILY 08/20/18 04/13/19 History HYDROcodone/APAP 5-325MG [[place] 1 tab PO Q4HR PRN 3 Days #18 tab 08/27/18 04/13/19 Rx 5-325] lamoTRIgine [LaMICtal Odt] 50 mg PO DAILY 04/13/19 04/13/19 History lamoTRIgine [LaMICtal] 100 mg PO HS 04/13/19 04/13/19 History Allergies Allergy/AdvReac Type Severity Reaction Status Date / Time desvenlafaxine succinate Allergy Hallucinati Verified 04/09/19 11:19 [From Pristiq] ons Penicillins Allergy Nausea & Verified 04/09/19 11:19 Vomiting Exam Osteopathic Statement: *. No significant issues noted on an osteopathic structural exam other than those noted in the History and Physical/Consult. Heart: Regular rate and rhythm Lungs: Clear to auscultation bilaterally Abdomen: Soft, nontender Extremities: Negative Homans sign Assessment and Plan (1) LGSIL (low grade squamous intraepithelial dysplasia) Narrative/Plan: Persistent Status: Acute Code(s): LCP7079 - SNOMED Code(s): 810847013 Plan: 1. Loop electrocautery excision procedure
[~2019-04-15 10:23] MED LIST changes: -ACETAMINOPHEN IV (For NPO) 1,000 MG in EMPTY BAG 1 BAG IVPB ONE; +DEXAMETHASONE SOD PHOSPHATE 10 MG/ML 1 ML VIAL IV ONE; -HEPARIN SODIUM,PORCINE 5,000 UNIT/ML 1 ML VIAL SQ ONE; +HYDROmorphone 0.5 MG/0.5 ML SYRINGE IVP PRN; +LACTATED RINGERS 1,000 ML IV SCH; +MIDAZOLAM 2 MG/2 ML VIAL IV PRN; +ONDANSETRON 4 MG/2 ML VIAL IVP ONE; +Pre Op ABX Message 1 EACH MISC MISCELLANE ONE; -ceFAZolin IN SWFI 2 GM/20 ML SYRINGE IVP ONE
[2019-04-15] MEDS ORDERED: LIDOCAINE 1% 20 ML VIAL (10MG/ML) FOR IV START INTRADERMA ONE (10:50)
[2019-04-15] MEDS ORDERED: DEXAMETHASONE SOD PHOS (MDV) 100 MG/10 ML VIAL IVP ONE (10:55)
[2019-04-15] MEDS ORDERED: SCOPOLAMINE 1.5MG/72HR PATCH TRANSDERM ONE (10:55)
[2019-04-15] MEDS ORDERED: KETOROLAC 30 MG/ML 1 ML VIAL ONE (11:28)
[2019-04-15] MEDS ORDERED: PROPOFOL 10 MG/ML 20 ML VIAL IV ONE (11:28)
[2019-04-15] MEDS ORDERED: LIDOCAINE 1% INJ 10MG/ML (20 ML MDV) ONE (11:28)
[2019-04-15] MEDS ORDERED: MIDAZOLAM 2 MG/2 ML VIAL ONE (11:28)
[2019-04-15] MEDS ORDERED: fentaNYL (PF) 50 MCG/ML 2 ML AMP ONE (11:28)
--- NOTE | 2019-04-15 12:07 | P.OP ---
Date of Procedure: 04/15/19 Preoperative Diagnosis: 1. persistent LGSIL Postoperative Diagnosis: 1. persistent LGSIL Procedure(s) Performed: LEEP Anesthesia: ISATU Surgeon: Destinee Winston Estimated Blood Loss (ml): 2 IV fluids (ml): 600 Urine output (ml): 20 Pathology: other (cervical cone-in pieces) Condition: stable Disposition: PACU Description of Procedure: Patient is taken the operating room where general anesthesia obtained without difficulty. She is prepped and draped in normal sterile fashion dorsal lithotomy position, legs placed in candycane stirrups. Bladder was drained of all urine. A coated bivalve speculum was placed in vagina. The loop cautery was used to obtain biopsies of the anterior lip the posterior lip and endocervix. Specimen sent to pathology. The ball cautery was used to obtain hemostasis. Monsel's was also placed. Patient tolerated procedure well, sponge and instrument counts correct 2. She was taken recovery in stable condition.
[2019-04-15 12:09] VITALS: TEMP 97.2
[2019-04-15 12:19] VITALS: RESP 16
[2019-04-15 13:15] VITALS: BP 108/74; PULSE 64
== END 2019-04-15 13:39 | disposition home or self-care (01) ==
LOC: OR 10:23
PROVIDERS: ATTEND Obstetrics & Gynecology
DX: R87.612 Low grade squamous intraepithelial lesion on cytologic smear of cervix (LGSIL) (principal); K21.9 Gastro-esophageal reflux disease without esophagitis; I10 Essential (primary) hypertension; F17.210 Nicotine dependence, cigarettes, uncomplicated; F41.9 Anxiety disorder, unspecified; F32.9 Major depressive disorder, single episode, unspecified; Z96.653 Presence of artificial knee joint, bilateral; Z79.899 Other long term (current) drug therapy; Z90.49 Acquired absence of other specified parts of digestive tract; Z79.1 Long term (current) use of non-steroidal anti-inflammatories (NSAID); Z79.891 Long term (current) use of opiate analgesic; Z88.0 Allergy status to penicillin; Z88.8 Allergy status to other drugs, medicaments and biological substances
CPT/HCPCS: 81025; 88307; 57522; J2250; J2405; J2001; J3010; J1885; J1100; J2704

== ENCOUNTER 2019-10-15 20:14 | Emergency (ER) | payer OTHER ==
[2019-10-15] MEDS ORDERED: ACET/COD 300 MG/30 MG STARTER PACK 6 TAB BTL PO STA (20:43)
[2019-10-15] MEDS ORDERED: CLINDAMYCIN 150 MG CAP PO STA (20:43)
--- NOTE | 2019-10-15 20:48 | ED ---
General Adult HPI - General Chief complaint: Dental/Oral Stated complaint: Dental Pain Time Seen by Provider: 10/15/19 20:22 Source: patient, RN notes reviewed Mode of arrival: ambulatory Limitations: no limitations - History of Present Illness Initial comments: 44-year-old female with a past medical history of GERD, hypertension presents to the emergency department for a chief complaint of tooth pain. Patient states she has left lower dental pain for 3 weeks. States that she sees a dentist in [place] but does not have time to make it out there. Patient states the pain is getting worse or she denies fevers. She denies swelling. Patient denies any difficulty opening her mouth or swallowing.Patient has no other complaints at this time including shortness of breath, chest pain, abdominal pain, nausea or vomiting, headache, or visual changes. - Related Data Home Medications Medication Instructions Recorded Confirmed Metoprolol Succinate (ER) [Toprol 25 mg PO DAILY 08/20/18 04/13/19 Xl] Omeprazole 40 mg PO DAILY 08/20/18 04/13/19 lamoTRIgine [LaMICtal Odt] 50 mg PO DAILY 04/13/19 04/13/19 lamoTRIgine [LaMICtal] 100 mg PO HS 04/13/19 04/15/19 Cetirizine HCl [Zyrtec] 10 mg PO DAILY 04/15/19 04/15/19 FLUoxetine HCL [PROzac] 20 mg PO DAILY 04/15/19 04/15/19 Previous Rx's Medication Instructions Recorded HYDROcodone/APAP 5-325MG [[place] 1 - 2 tab PO Q6HR PRN #20 tab 04/15/19 5-325] Ibuprofen [Motrin] 600 mg PO Q6HR PRN #30 tab 04/15/19 Clindamycin [Cleocin] 450 mg PO Q8H 7 Days #63 cap 10/15/19 Allergies Allergy/AdvReac Type Severity Reaction Status Date / Time desvenlafaxine succinate Allergy Hallucinati Verified 10/15/19 20:20 [From Pristiq] ons Penicillins Allergy Nausea & Verified 10/15/19 20:20 Vomiting Review of Systems ROS Statement: Those systems with pertinent positive or pertinent negative responses have been documented in the HPI. ROS Other: All systems not noted in ROS Statement are negative. Past Medical History Past Medical History: GERD/Reflux, Hypertension Additional Past Medical History / Comment(s): seasonal allergies. LGSIL History of Any Multi-Drug Resistant Organisms: None Reported Past Surgical History: Cholecystectomy, Hernia Repair, Joint Replacement, Orthopedic Surgery, Tubal Ligation, Uterine Ablation Additional Past Surgical History / Comment(s): BOTH KNEE SX. BILAT TKA WITH REVISIONS X 2 Past Anesthesia/Blood Transfusion Reactions: No Reported Reaction Past Psychological History: Anxiety, Depression Smoking Status: Current every day smoker Past Alcohol Use History: None Reported Past Drug Use History: None Reported - Past Family History Mother Family Medical History: Cancer General Exam Limitations: no limitations General appearance: alert, in no apparent distress Head exam: Present: atraumatic, normocephalic, normal inspection Eye exam: Present: normal appearance, PERRL, EOMI. Absent: scleral icterus, conjunctival injection, periorbital swelling ENT exam: Present: normal exam, mucous membranes moist. Absent: normal oropharynx (Poor dentition noted. Patient has tenderness to tooth 18. There is no abscess palpated along the gumline or visualized with direct visualization. There is no swelling of the jaw or face. No swelling into the neck. No sublingual edema.) Neck exam: Present: normal inspection, full ROM. Absent: tenderness, meningismus, lymphadenopathy Respiratory exam: Present: normal lung sounds bilaterally. Absent: respiratory distress, wheezes, rales, rhonchi, stridor Cardiovascular Exam: Present: regular rate, normal rhythm Course Vital Signs 10/15/19 20:18 Temperature 98 F Pulse Rate 73 Respiratory 16 Rate Blood Pressure 119/84 O2 Sat by Pulse 100 Oximetry Medical Decision Making - Medical Decision Making Patient was seen on presentation. Physical exam and history as documented. Vitals are stable. Patient will be treated for dental infection with clindamyci n as she is ALLERGIC to penicillin. Dose was given to her here. She will also be treated with Tylenol 3. She is aware not to drive or primary machinery while taking this. Patient's is giving her a ride home. Patient will follow- up with her dentist as soon as possible. She states she will make time. She'll return here if she has any worsening symptoms. Disposition Clinical Impression: Pain, dental Disposition: HOME SELF-CARE Condition: Good Instructions (If sedation given, give patient instructions): Toothache (ED) Additional Instructions: Please take Motrin for pain. If pain is severe take Tylenol [address] machinery while taking this. Take your antibiotic as directed. Return to the emergency department if you have any worsening symptoms. Prescriptions: Clindamycin [Cleocin] 450 mg PO Q8H 7 Days #63 cap Is patient prescribed a controlled substance at d/c from ED?: No Referrals: Paulette Bunch DO [Primary Care Provider] - 1-2 days Time of Disposition: 20:46
[2019-10-15 21:11] VITALS: BP 119/84; PULSE 73; RESP 16; TEMP 98
== END 2019-10-15 20:57 | disposition home or self-care (01) ==
LOC: EC 20:14
DX: K04.7 Periapical abscess without sinus (principal); K21.9 Gastro-esophageal reflux disease without esophagitis; I10 Essential (primary) hypertension; J30.2 Other seasonal allergic rhinitis; F17.200 Nicotine dependence, unspecified, uncomplicated; Z79.899 Other long term (current) drug therapy; Z88.8 Allergy status to other drugs, medicaments and biological substances; Z88.0 Allergy status to penicillin; Z96.653 Presence of artificial knee joint, bilateral
CPT/HCPCS: 99282

== ENCOUNTER 2020-07-05 09:15 | Day surgery (SDC) | payer OTHER ==
[2020-07-03 12:03] VITALS: BMI 41.5
--- NOTE | 2020-07-05 09:09 | P.GSHP ---
History of Present Illness H&P Date: 07/05/20 CHIEF COMPLAINT: Abdominal pain with rectal bleeding HISTORY OF PRESENT ILLNESS: The patient is a 44-year-old female who presents with abdominal pain including rectal bleeding. Lower endoscopy was offered for further evaluation and management. PAST MEDICAL HISTORY: Please see list. PAST SURGICAL HISTORY: Please see list. MEDICATIONS: Please see list. ALLERGIES: Please see list. SOCIAL HISTORY: No illicit drug use FAMILY HISTORY: No reports of Crohn disease or ulcerative colitis. REVIEW OF ORGAN SYSTEMS: CONSTITUTIONAL: No reports of fevers or chills. No reports of weight loss despite prior attempts. GI: Has diarrhea including change in bowel habits. PHYSICAL EXAM: VITAL SIGNS: Stable GENERAL: Well-developed pleasant male in no acute distress. HEENT: No scleral icterus. Extraocular movements grossly intact. Moist buccal mucosa. NECK: Supple without lymphadenopathy. CHEST: Unlabored respirations. Equal bilateral excursions. CARDIOVASCULAR: Regular rate and rhythm. Distal 2+ pulses. ABDOMEN: Soft, nontender, nondistended. MUSCULOSKELETAL: No clubbing, cyanosis, or edema. ASSESSMENT: 1. Rectal bleeding 2. Change in bowel habits. 3. Abdominal pain PLAN: 1. Recommend proceeding with a lower endoscopy Past Medical History Past Medical History: GERD/Reflux, Hyperlipidemia, Hypertension Additional Past Medical History / Comment(s): seasonal allergies. LGSIL History of Any Multi-Drug Resistant Organisms: None Reported Past Surgical History: Cholecystectomy, Hernia Repair, Joint Replacement, Orthopedic Surgery, Tubal Ligation, Uterine Ablation Additional Past Surgical History / Comment(s): BOTH KNEE SX. BILAT TKA WITH REVISIONS X 2. LEEP-04/15/19 Past Anesthesia/Blood Transfusion Reactions: No Reported Reaction Smoking Status: Current every day smoker - Past Family History Mother Family Medical History: Cancer Medications and Allergies Home Medications Medication Instructions Recorded Confirmed Type Metoprolol Succinate (ER) [Toprol 25 mg PO DAILY 08/20/18 07/03/20 History Xl] lamoTRIgine [LaMICtal] 100 mg PO BID 04/13/19 07/03/20 History Cetirizine HCl [Zyrtec] 10 mg PO DAILY 04/15/19 07/03/20 History FLUoxetine HCL [PROzac] 20 mg PO DAILY 04/15/19 07/03/20 History Ibuprofen [Motrin] 600 mg PO Q6HR PRN #30 tab 04/15/19 07/03/20 Rx Atorvastatin [Lipitor] 20 mg PO HS 07/03/20 07/03/20 History diphenhydrAMINE [Benadryl] 25 mg PO HS PRN 07/03/20 07/03/20 History Allergies Allergy/AdvReac Type Severity Reaction Status Date / Time desvenlafaxine succinate Allergy Hallucinati Verified 07/03/20 11:53 [From Pristiq] ons Penicillins Allergy Nausea & Verified 07/03/20 11:53 Vomiting
[~2020-07-05 09:15] MED LIST changes: -DEXAMETHASONE SOD PHOSPHATE 10 MG/ML 1 ML VIAL IV ONE; -HYDROmorphone 0.5 MG/0.5 ML SYRINGE IVP PRN; -MIDAZOLAM 2 MG/2 ML VIAL IV PRN; -ONDANSETRON 4 MG/2 ML VIAL IVP ONE; -Pre Op ABX Message 1 EACH MISC MISCELLANE ONE
[2020-07-05 09:32] VITALS: TEMP 97.8
[2020-07-05] MEDS ORDERED: LACTATED RINGERS 1,000 ML IV ONE (09:32)
[2020-07-05] MEDS ORDERED: LIDOCAINE 1% (10MG/ML) FOR IV START INTRADERMA ONE (09:33)
[2020-07-05] MEDS ORDERED: PROPOFOL 10 MG/ML 20 ML VIAL IV ONE (11:25)
--- NOTE | 2020-07-05 11:47 | P.PCN ---
Date of Procedure: 07/05/20 Description of Procedure: PREOPERATIVE DIAGNOSIS: Change in bowel habits Rectal bleeding POSTOPERATIVE DIAGNOSIS: Change in bowel habits Rectal bleeding Anorectal mass OPERATION: Colonoscopy to the cecum, ileocecal valve and appendiceal orifice. SURGEON: Rachel Solitario MD. ANESTHESIA: MAC. INDICATIONS: The patient is a 44-year-old female who presents with change in bowel habits and rectal bleeding. Benefits and risks were described and informed consent was obtained. DESCRIPTION OF PROCEDURE: The patient had undergone Gatorade, MiraLAX and Dulcolax prep. She had been brought into the operating room and laid in the left lateral decubitus position. After adequate intravenous sedation, the rectum was examined with 2% lidocaine jelly. A large 3 x 1 cm anal rectal lesion of polypoid type was identified including extending along the perineum with smaller satellite lesions without active bleeding. The rectal tone was within normal limits. No lesions were palpated in the rectal vault. An Olympus colonoscope was advanced until the cecum, ileocecal valve and appendiceal orifice were clearly viewed. The prep was fair. No scattered diverticulosis was encountered. No colonic polyps were found. No evidence of focal colitis was found. Retroflexion of the scope demonstrated grade 4 internal hemorrhoids without active bleeding or inflammation. The colon was desufflated. The patient had tolerated the procedure well. Withdrawal time was over 6 minutes. FINDINGS: Aronchick preparation quality scale (1-5) Internal hemorrhoids, grade 2 External prolapsed hemorrhoids, grade 4 No arteriovenous malformations. No adenomatous polyps. No focal colitis. Mass along the anoderm 3 x 1 cm polypoid type RECOMMENDATIONS: Referral to colorectal surgeon for polypoid lesion along anoderm Plan - Discharge Summary Discharge Rx Participant: No New Discharge Prescriptions: Continue Metoprolol Succinate (ER) [Toprol XL] 25 mg PO DAILY lamoTRIgine [LaMICtal] 100 mg PO BID Cetirizine HCl [Zyrtec] 10 mg PO DAILY FLUoxetine HCL [PROzac] 20 mg PO DAILY Ibuprofen [Motrin] 600 mg PO Q6HR PRN #30 tab PRN Reason: Mild Pain Or Fever >= 100.5 diphenhydrAMINE [Benadryl] 25 mg PO HS PRN PRN Reason: ALLERGIES Atorvastatin [Lipitor] 20 mg PO HS Discharge Medication List Metoprolol Succinate (ER) [Toprol XL] 25 mg PO DAILY 08/20/18 [History] lamoTRIgine [LaMICtal] 100 mg PO BID 04/13/19 [History] Cetirizine HCl [Zyrtec] 10 mg PO DAILY 04/15/19 [History] FLUoxetine HCL [PROzac] 20 mg PO DAILY 04/15/19 [History] Ibuprofen [Motrin] 600 mg PO Q6HR PRN #30 tab 04/15/19 [Rx] Atorvastatin [Lipitor] 20 mg PO HS 07/03/20 [History] diphenhydrAMINE [Benadryl] 25 mg PO HS PRN 07/03/20 [History] Follow up Appointment(s)/Referral(s): Rachel Solitario MD [STAFF PHYSICIAN] - 07/11/20 Patient Instructions/Handouts: *[facility] - (Anesthesia) Endoscopy Discharge Instructions Activity/Diet/Wound Care/Special Instructions: Lower endoscopy as needed Discharge Disposition: HOME SELF-CARE
[2020-07-05 12:29] VITALS: BP 110/63; PULSE 79; RESP 16
== END 2020-07-05 12:34 | disposition home or self-care (01) ==
LOC: ORWHC2ENDO 09:15
PROVIDERS: ATTEND Surgery Plastic and Reconstructive Surgery
DX: K62.9 Disease of anus and rectum, unspecified (principal); K64.1 Second degree hemorrhoids; K64.3 Fourth degree hemorrhoids; K62.5 Hemorrhage of anus and rectum; K21.9 Gastro-esophageal reflux disease without esophagitis; I10 Essential (primary) hypertension; E78.5 Hyperlipidemia, unspecified; E66.01 Morbid (severe) obesity due to excess calories; Z68.41 Body mass index [BMI] 40.0-44.9, adult; F41.9 Anxiety disorder, unspecified; F32.9 Major depressive disorder, single episode, unspecified; F17.210 Nicotine dependence, cigarettes, uncomplicated; J30.2 Other seasonal allergic rhinitis; Z90.49 Acquired absence of other specified parts of digestive tract; Z98.51 Tubal ligation status; Z96.653 Presence of artificial knee joint, bilateral; Z98.890 Other specified postprocedural states; Z79.899 Other long term (current) drug therapy; Z88.0 Allergy status to penicillin; Z88.8 Allergy status to other drugs, medicaments and biological substances
CPT/HCPCS: 81025; 45378; J2704

== ENCOUNTER 2021-04-11 08:12 | Day surgery (SDC) | payer OTHER ==
[2021-04-06 15:08] VITALS: BMI 45.5
--- NOTE | 2021-04-11 08:37 | P.GSHP ---
History of Present Illness H&P Date: 04/11/21 CHIEF COMPLAINT: GERD HISTORY OF PRESENT ILLNESS: The patient is a 45-year-old male who presents reports gastroesophageal reflux disease. Upper endoscopy was offered for further evaluation and management. PAST MEDICAL HISTORY: Please see list. PAST SURGICAL HISTORY: Please see list. MEDICATIONS: Please see list. ALLERGIES: Please see list. SOCIAL HISTORY: No illicit drug use FAMILY HISTORY: No reports of Crohn disease or ulcerative colitis. REVIEW OF ORGAN SYSTEMS: CONSTITUTIONAL: No reports of fevers or chills. GI: Denies any blood in stools or constipation. PHYSICAL EXAM: VITAL SIGNS: Stable GENERAL: Well-developed and pleasant in no acute distress. HEENT: No scleral icterus. Extraocular movements grossly intact. Moist buccal mucosa. NECK: Supple without lymphadenopathy. CHEST: Unlabored respirations. Equal bilateral excursions. CARDIOVASCULAR: Regular rate and rhythm. Distal 2+ pulses. ABDOMEN: Soft, nondistended. MUSCULOSKELETAL: No clubbing, cyanosis, or edema. ASSESSMENT: 1. Gastroesophageal reflux disease PLAN: 1. Recommend proceeding with an upper endoscopy Past Medical History Past Medical History: GERD/Reflux, Hyperlipidemia, Hypertension Additional Past Medical History / Comment(s): seasonal allergies. hypoglycemia. c/o "burning or stinging in stomach, into throat.". LGSIL History of Any Multi-Drug Resistant Organisms: None Reported Past Surgical History: Cholecystectomy, Hernia Repair, Joint Replacement, Orthopedic Surgery, Tubal Ligation, Uterine Ablation Additional Past Surgical History / Comment(s): BOTH KNEE SX. BILAT TKA WITH REVISIONS X 2. LEEP-04/15/19. colonoscopies Past Anesthesia/Blood Transfusion Reactions: Motion Sickness Smoking Status: Current every day smoker - Past Family History Mother Family Medical History: Cancer Medications and Allergies Home Medications Medication Instructions Recorded Confirmed Type Metoprolol Succinate (ER) [Toprol 25 mg PO DAILY 08/20/18 04/06/21 History XL] Cetirizine HCl [Zyrtec] 10 mg PO DAILY 04/15/19 04/06/21 History FLUoxetine HCL [PROzac] 20 mg PO HS 04/15/19 04/06/21 History Atorvastatin [Lipitor] 20 mg PO DAILY 07/03/20 04/06/21 History Acetaminophen [Tylenol Extra 500 mg PO DIRECTED PRN 04/06/21 04/06/21 History Strength] Pantoprazole Sodium [Protonix] 40 mg PO DAILY 04/06/21 04/06/21 History Allergies Allergy/AdvReac Type Severity Reaction Status Date / Time desvenlafaxine succinate Allergy Hallucinati Verified 04/06/21 14:50 [From Pristiq] ons Penicillins Allergy Nausea & Verified 04/06/21 14:50 Vomiting
[2021-04-11 08:51] VITALS: RESP 16; TEMP 98.7
[2021-04-11] MEDS ORDERED: LIDOCAINE 1% INJ 10MG/ML (20 ML MDV) ONE (09:07)
[2021-04-11] MEDS ORDERED: PROPOFOL 10 MG/ML 20 ML VIAL IV ONE (09:07)
--- NOTE | 2021-04-11 09:19 | P.PCN ---
Date of Procedure: 04/11/21 Description of Procedure: PREOPERATIVE DIAGNOSIS: Gastroesophageal reflux disease. Morbid obesity. POSTOPERATIVE DIAGNOSIS: Morbid obesity. Gastritis. Gastroesophageal reflux disease with erosive esophagitis OPERATION: Esophagogastroduodenoscopy with biopsies along antrum. SURGEON: Rachel Solitario MD ANESTHESIA: MAC. INDICATIONS: The patient is a 45-year-old female who presents with a history of reflux disease. Benefits and risks of the procedure were described. Informed consent was obtained. DESCRIPTION: The patient was brought into the endoscopy suite and laid in the left lateral decubitus position. An Olympus gastroscope was passed along the posterior oropharynx down to the distal esophagus where the squamocolumnar junction was encountered at 36 cm from the incisors. The stomach was entered and no bile reflux was found. Additional findings are listed below. Biopsies with cold forceps were obtained of the antrum. The first through third portion of the duodenum was examined and unremarkable. Retroflexion of the scope confirmed Hill grade 2 lower esophageal valve. The squamocolumnar junction demonstrated LA grade B erosive esophagitis. The stomach was desufflated. The patient tolerated the procedure well. FINDINGS: Squamocolumnar junction 36 cm from the incisors. Diaphragmatic hiatus at 36 cm. Hill grade 2 lower esophageal valve. LA grade B erosive esophagitis. No active duodenitis. Chronic gastritis, mild RECOMMENDATIONS: Upper endoscopy as needed. Plan - Discharge Summary Discharge Rx Participant: No New Discharge Prescriptions: Continue Metoprolol Succinate (ER) [Toprol XL] 25 mg PO DAILY Cetirizine HCl [Zyrtec] 10 mg PO DAILY FLUoxetine HCL [PROzac] 20 mg PO HS Atorvastatin [Lipitor] 20 mg PO DAILY Pantoprazole Sodium [Protonix] 40 mg PO DAILY Acetaminophen [Tylenol Extra Strength] 500 mg PO DIRECTED PRN PRN Reason: Pain Discharge Medication List Metoprolol Succinate (ER) [Toprol XL] 25 mg PO DAILY 08/20/18 [History] Cetirizine HCl [Zyrtec] 10 mg PO DAILY 04/15/19 [History] FLUoxetine HCL [PROzac] 20 mg PO HS 04/15/19 [History] Atorvastatin [Lipitor] 20 mg PO DAILY 07/03/20 [History] Acetaminophen [Tylenol Extra Strength] 500 mg PO DIRECTED PRN 04/06/21 [History] Pantoprazole Sodium [Protonix] 40 mg PO DAILY 04/06/21 [History] Follow up Appointment(s)/Referral(s): Rachel Solitario MD [STAFF PHYSICIAN] - 04/19/21 Patient Instructions/Handouts: Diet for Stomach Ulcers and Gastritis (ED), Gastritis (DC), Low Fat Diet (DC) Discharge Disposition: HOME SELF-CARE
[2021-04-11 09:44] VITALS: BP 105/74; PULSE 72
== END 2021-04-11 10:33 | disposition home or self-care (01) ==
LOC: ORWHC2ENDO 08:12
PROVIDERS: ATTEND Surgery Plastic and Reconstructive Surgery
DX: K29.70 Gastritis, unspecified, without bleeding (principal); K21.00 Gastro-esophageal reflux disease with esophagitis, without bleeding; E66.01 Morbid (severe) obesity due to excess calories; E78.5 Hyperlipidemia, unspecified; F17.200 Nicotine dependence, unspecified, uncomplicated; I10 Essential (primary) hypertension; Z79.899 Other long term (current) drug therapy; Z96.653 Presence of artificial knee joint, bilateral; Z90.49 Acquired absence of other specified parts of digestive tract; Z88.0 Allergy status to penicillin
CPT/HCPCS: 43239; 81025; J2001; J2704; 88305; 88342

== ENCOUNTER → 2021-05-03 | Outpatient (CLI) | payer OTHER ==
--- NOTE | 2021-05-03 11:59 | FL ---
EXAMINATION TYPE: FL barium swallow DATE OF EXAM: 05/03/2021 COMPARISON: None HISTORY: History reflux and dysphasia, coughing when eating and drinking TECHNIQUE: A double air contrast UGI study is performed. FINDINGS: Esophagus dilates normal caliber and has normal contour the gastroesophageal junction. Gastroesophage al junction opens to normal caliber. There is complete stripping esophageal post horizontal drinking position. While drinking patient had multiple episodes of significant coughing. However, no aspiration could be identified during this exam. Consider modified barium swallow for closer evaluation. IMPRESSIONS: 1. No suspicious acute changes Esophagram. 2. Multiple significant coughing while drinking during this exam. While aspiration was not identified , closer evaluation of modified barium swallow should be considered.
== END | disposition home or self-care (01) ==
LOC: RADUSWWP 09:01
PROVIDERS: ATTEND Surgery Plastic and Reconstructive Surgery
DX: K44.9 Diaphragmatic hernia without obstruction or gangrene (principal)
CPT/HCPCS: 74220

== ENCOUNTER → 2021-09-24 | Outpatient (CLI) | payer OTHER | END | disposition home or self-care (01) | LOC: LABPAT 10:09 | PROVIDERS: ATTEND Surgery Plastic and Reconstructive Surgery | DX: Z03.818 Encounter for observation for suspected exposure to other biological agents ruled out (principal); Z20.822 Contact with and (suspected) exposure to COVID-19 | CPT/HCPCS: U0003; C9803; U0005 ==

== ENCOUNTER 2021-09-27 07:06 | Day surgery (SDC) | payer OTHER ==
[2021-09-24 12:46] VITALS: BMI 45.8
--- NOTE | 2021-09-27 07:36 | P.GSHP ---
History of Present Illness H&P Date: 09/27/21 CHIEF COMPLAINT: GERD and change in bowel habits HISTORY OF PRESENT ILLNESS: The patient is a 46-year-old male who presents with gastroesophageal reflux disease and need for colon screen. Upper and lower endoscopy were offered for further evaluation and management. PAST MEDICAL HISTORY: Please see list. PAST SURGICAL HISTORY: Please see list. MEDICATIONS: Please see list. ALLERGIES: Please see list. SOCIAL HISTORY: No illicit drug use FAMILY HISTORY: No reports of Crohn disease or ulcerative colitis. REVIEW OF ORGAN SYSTEMS: CONSTITUTIONAL: No reports of fevers or chills. GI: Denies any blood in stools or constipation. PHYSICAL EXAM: VITAL SIGNS: Stable GENERAL: Well-developed pleasant in no acute distress. HEENT: No scleral icterus. Extraocular movements grossly intact. Moist buccal mucosa. NECK: Supple without lymphadenopathy. CHEST: Unlabored respirations. Equal bilateral excursions. CARDIOVASCULAR: Regular rate and rhythm. Distal 2+ pulses. ABDOMEN: Soft, nondistended. MUSCULOSKELETAL: No clubbing, cyanosis, or edema. ASSESSMENT: 1. Gastroesophageal reflux disease 2. Change in bowel habits PLAN: 1. Recommend proceeding with an upper and lower endoscopy Past Medical History Past Medical History: GERD/Reflux, Hyperlipidemia, Hypertension Additional Past Medical History / Comment(s): seasonal allergies. hypoglycemia. c/o "burning or stinging in stomach, into throat." BLOOD WITH WIPING AFTER BOWEL MOVEMENT, STATES GETS LUMPS ON RECTUM (NOT HEMORRHOIDS PER PT) LGSIL History of Any Multi-Drug Resistant Organisms: None Reported Past Surgical History: Cholecystectomy, Hernia Repair, Joint Replacement, Orthopedic Surgery, Tubal Ligation, Uterine Ablation Additional Past Surgical History / Comment(s): BOTH KNEE SX. BILAT TKA WITH REVISIONS X 2. LEEP-04/15/19. colonoscopies. LUMP REMOVED FROM RECTAL AREA. EGD Past Anesthesia/Blood Transfusion Reactions: Motion Sickness Smoking Status: Current every day smoker - Past Family History Mother Family Medical History: Cancer Medications and Allergies Home Medications Medication Instructions Recorded Confirmed Type Cetirizine HCl [Zyrtec] 10 mg PO DAILY 04/15/19 09/24/21 History Baclofen [Lioresal] 20 mg PO TID PRN 09/24/21 09/24/21 History Allergies Allergy/AdvReac Type Severity Reaction Status Date / Time desvenlafaxine succinate Allergy Hallucinati Verified 09/24/21 12:25 [From Basil] ons Penicillins Allergy Nausea & Verified 09/24/21 12:25 Vomiting
[2021-09-27 07:37] VITALS: TEMP 98.2
[2021-09-27] MEDS ORDERED: PROPOFOL 10 MG/ML 20 ML VIAL IV ONE (07:41)
[2021-09-27] MEDS ORDERED: LIDOCAINE 1% INJ 10MG/ML (20 ML MDV) ONE (07:41)
[2021-09-27 08:18] VITALS: PULSE 87
[2021-09-27 08:30] VITALS: BP 106/68; RESP 16
--- NOTE | 2021-09-27 08:44 | P.PCN ---
Date of Procedure: 09/27/21 Description of Procedure: PREOPERATIVE DIAGNOSIS: Change in bowel habits with colitis POSTOPERATIVE DIAGNOSIS: Change in bowel habits with colitis Anal condyloma OPERATION: Colonoscopy to the ileocecal valve and appendiceal orifice, cecum Colonoscopy with cold forceps biopsy SURGEON: Rachel Soliatrio MD. ANESTHESIA: MAC. INDICATIONS: The patient is an 46-year-old female who presents with change in bowel habits. Benefits and risks were described and informed consent was obtained. DESCRIPTION OF PROCEDURE: The patient had undergone Sutab prep. The patient had been brought into the operating room and laid in the left lateral decubitus position. After adequate intravenous sedation, the rectum was examined with 2% lidocaine jelly. 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 The rectal tone was within normal limits. No lesions were palpated in the rectal vault. An Olympus colonoscope was advanced until the cecum, ileocecal valve and appendiceal orifice were clearly viewed. The prep was excellent. No sigmoid diverticulosis was encountered. Retroflexion of the scope demonstrated grade 2 internal hemorrhoids without active bleeding or inflammation. The colon was desufflated. The patient had tolerated the procedure well. Withdrawal time was over 6 minutes. FINDINGS: Aronchick preparation quality scale 1 (1-5) Internal hemorrhoids, grade 2 External hemorrhoids, grade 2 No arteriovenous malformations. No sigmoid diverticulosis Anal condyloma 1 cm identified. Random biopsies obtained for microscopic colitis RECOMMENDATIONS: Repeat colonoscopy in 5 years, 2026 Plan - Discharge Summary Discharge Rx Participant: No New Discharge Prescriptions: New Sucralfate [Carafate] 1 gm PO BID #30 tablet Omeprazole [PriLOSEC] 40 mg PO DAILY #14 cap Continue Cetirizine HCl [Zyrtec] 10 mg PO DAILY Baclofen [Lioresal] 20 mg PO TID PRN PRN Reason: Spasms Discharge Medication List Cetirizine HCl [Zyrtec] 10 mg PO DAILY 04/15/19 [History] Baclofen [Lioresal] 20 mg PO TID PRN 09/24/21 [History] Omeprazole [PriLOSEC] 40 mg PO DAILY #14 cap 09/27/21 [Rx] Sucralfate [Carafate] 1 gm PO BID #30 tablet 09/27/21 [Rx] Follow up Appointment(s)/Referral(s): Rachel Solitario MD [STAFF PHYSICIAN] - 10/09/21 9:30 am Patient Instructions/Handouts: *[facility] - (Anesthesia) Endoscopy Discharge Instructions, Gastritis (DC), Diet for Stomach Ulcers and Gastritis (GEN), Gastroesophageal Reflux Disease (DC), Esophageal Dilation (DC) Activity/Diet/Wound Care/Special Instructions: Salt water gargle for 1 week. Liquid diet today. Soft diet tomorrow. Discharge Disposition: HOME SELF-CARE
--- NOTE | 2021-09-27 09:04 | P.PCN ---
Date of Procedure: 09/27/21 Description of Procedure: PREOPERATIVE DIAGNOSIS: Gastroesophageal reflux disease Dysphagia POSTOPERATIVE DIAGNOSIS: Upper esophageal stenosis Moderate gastritis with recent bleed Gastric ulcers OPERATION: Esophagogastroduodenoscopy with rigid dilator over the guidewire 57 Fr with dilation Esophagogastroduodenoscopy with cold forceps biopsies stomach/antrum SURGEON: Rachel Solitario MD ANESTHESIA: MAC. INDICATIONS: The patient is a 46-year-old female who presents with dysphagia and abdominal pain. Benefits and risks of the procedure were described. Informed consent was obtained. DESCRIPTION: The patient was brought into the endoscopy suite and laid in the left lateral decubitus position. After a timeout was confirmed, the procedure was initiated. An Olympus gastroscope was passed into the posterior oropharynx where an upper esophageal stenosis was identified. The scope was passed down to the distal esophagus. To address the upper esophageal stenosis, rigid dilator over guidewire was selected. Next using an [place] rigid dilator, a guidewire was placed through the gastroscope. Next the scope was withdrawn. A 57-Iraqi rigid [place] dilator was passed carefully along the posterior oropharynx to 45 cm and left in place for 2-3 minutes stretch. The dilator was withdrawn including the guidewire. The scope was reentered along the posterior oropharynx with no findings of full- thickness tear of the upper esophageal sphincter. Additional findings below. Within the stomach, severe acute gastritis with gastric ulcerations were identified along the body of the stomach with cold forceps biopsies obtained. The large esophageal valve was evaluated with Hill grade 2 lower esophageal valve. LA grade B erosive esophagitis was identified. No full-thickness injury was encountered. The GI tract was desufflated. The patient tolerated the procedure well. FINDINGS: Upper esophageal stenosis dilated 57-Iraqi rigid dilator Diaphragmatic hiatus at 40 cm from the incisors Squamocolumnar junction 40 cm from the incisors. Moderate gastritis along the gastric body and fundus cold forceps biopsies obtained Acute gastric ulcerations identified. Duodenum unremarkable LA grade B erosive esophagitis Hill grade 2 lower esophageal valve. RECOMMENDATIONS: Omeprazole 40 mg daily for 2 weeks. Carafate 1 g twice a day for 2 weeks
== END 2021-09-27 09:35 | disposition home or self-care (01) ==
LOC: ORWHC2ENDO 07:06
PROVIDERS: ATTEND Surgery Plastic and Reconstructive Surgery
DX: R13.10 Dysphagia, unspecified (principal); K52.9 Noninfective gastroenteritis and colitis, unspecified; A63.0 Anogenital (venereal) warts
CPT/HCPCS: 45380; 43239; 43249; 81025; 88305; J2001; J2704

== ENCOUNTER 2024-12-08 09:27 | Day surgery (SDC) | payer BC, OTHER ==
[2024-12-07 09:00] VITALS: BMI 38.8
--- NOTE | 2024-12-08 07:59 | P.GSHP ---
History of Present Illness H&P Date: 12/08/24 CHIEF COMPLAINT: GERD and colon screen HISTORY OF PRESENT ILLNESS: The patient is a 49-year-old female who presents with gastroesophageal reflux disease and need for colon screen. Upper and lower endoscopy were offered for further evaluation and management. PAST MEDICAL HISTORY: Please see list. PAST SURGICAL HISTORY: Please see list. MEDICATIONS: Please see list. ALLERGIES: Please see list. SOCIAL HISTORY: No illicit drug use FAMILY HISTORY: No reports of Crohn disease or ulcerative colitis. REVIEW OF ORGAN SYSTEMS: CONSTITUTIONAL: No reports of fevers or chills. GI: Denies any blood in stools or constipation. PHYSICAL EXAM: VITAL SIGNS: Stable GENERAL: Well-developed pleasant in no acute distress. HEENT: No scleral icterus. Extraocular movements grossly intact. Moist buccal mucosa. NECK: Supple without lymphadenopathy. CHEST: Unlabored respirations. Equal bilateral excursions. CARDIOVASCULAR: Regular rate and rhythm. Distal 2+ pulses. ABDOMEN: Soft, nondistended. MUSCULOSKELETAL: No clubbing, cyanosis, or edema. ASSESSMENT: 1. Gastroesophageal reflux disease 2. Colon screen. PLAN: 1. Recommend proceeding with an upper and lower endoscopy Past Medical History Past Medical History: Cancer, GERD/Reflux, Hyperlipidemia, Hypertension Additional Past Medical History / Comment(s): Seasonal allergies, hx cancerous polypectomies from stomach and bowel, hypoglycemia, c/o "burningin stomach", IBS-D, migraines, "bad knees". History of Any Multi-Drug Resistant Organisms: None Reported Past Surgical History: Cholecystectomy, Hernia Repair, Joint Replacement, Orthopedic Surgery, Tubal Ligation, Uterine Ablation Additional Past Surgical History / Comment(s): BILATERAL KNEE SURGERY, BILATERAL TOTAL KNEE REPLACEMENTS WITH REVISIONS X 2, LEEP, colonoscopies, EGD - cancerous polyps removed from stomach and bowel. Past Anesthesia/Blood Transfusion Reactions: No Reported Reaction, Motion Sickness Smoking Status: Current every day smoker - Past Family History Mother Family Medical History: Cancer Brother(s) History Unknown: Yes Family Medical History: Unable to Obtain Sister(s) History Unknown: Yes Family Medical History: Unable to Obtain Father History Unknown: Yes Family Medical History: Unable to Obtain Medications and Allergies Home Medications Medication Instructions Recorded Confirmed Type Famotidine [Pepcid] 20 mg PO BID 10/02/22 10/07/22 History Loratadine [Claritin] 10 mg PO DAILY 10/02/22 10/07/22 History Allergies Allergy/AdvReac Type Severity Reaction Status Date / Time desvenlafaxine succinate Allergy Hallucinati Verified 12/07/24 08:36 [From Pristiq] ons Penicillins Allergy Nausea & Verified 12/07/24 08:36 Vomiting
[2024-12-08] MEDS: IV FLUID CONTINUATION 1,000 ML IV ONE (09:58)
[2024-12-08 10:07] VITALS: RESP 16; TEMP 98
[2024-12-08 10:13] LABS: Glucose,Whole Blood 104 mg/dL (70-110)
[2024-12-08] MEDS ORDERED: PROPOFOL 10 MG/ML 20 ML VIAL IV ONE (10:26)
[2024-12-08] MEDS ORDERED: LIDOCAINE 1% INJ 10MG/ML (20 ML MDV) ONE (10:26)
--- NOTE | 2024-12-08 10:41 | P.PCN ---
Date of Procedure: 12/08/24 Description of Procedure: PREOPERATIVE DIAGNOSIS: Dysphagia Gastroesophageal reflux disease. Morbid obesity. POSTOPERATIVE DIAGNOSIS: Gastroesophageal reflux disease. Morbid obesity. Gastritis. Diaphragmatic hiatal hernia OPERATION: Esophagogastroduodenoscopy with cold forceps biopsies along esophagus, antrum and duodenum SURGEON: Rachel Solitario MD ANESTHESIA: MAC. INDICATIONS: The patient is a 49-year-old female who presents with dysphagia and reflux disease. Benefits and risks of the procedure were described. Informed consent was obtained. DESCRIPTION: The patient was brought into the endoscopy suite and laid in the left lateral decubitus position. An Olympus gastroscope was passed along the posterior oropharynx down to the distal esophagus where the squamocolumnar junction was encountered at 35 cm from the incisors. The stomach was entered and no bile reflux was found. Additional findings are listed below. Biopsies with cold forceps were obtained of the antrum. The first through third portion of the duodenum was examined. Retroflexion of the scope confirmed Hill grade 2 lower esophageal valve. The squamocolumnar junction demonstrated LA grade B erosive esophagitis. The stomach was desufflated. The patient tolerated the procedure well. FINDINGS: Squamocolumnar junction 35 cm from the incisors. Diaphragmatic hiatus at 37 cm. Hiatal hernia, 2 cm Hill grade 2 lower esophageal valve. LA grade B erosive esophagitis. Biopsies obtained Biopsies obtained of the duodenum. Chronic gastritis with biopsies obtained. RECOMMENDATIONS: Upper endoscopy as needed.
--- NOTE | 2024-12-08 11:10 | P.PCN ---
Date of Procedure: 12/08/24 Description of Procedure: PREOPERATIVE DIAGNOSIS: Abnormal stool function Change in bowel habits History of colon polyps POSTOPERATIVE DIAGNOSIS: Microscopic colitis OPERATION: Colonoscopy to the cecum, ileocecal valve and appendiceal orifice. Colonoscopy with random cold forceps biopsies for microscopic colitis SURGEON: Rachel Solitario MD. ANESTHESIA: MAC. INDICATIONS: The patient is a 49-year-old female who presents with altered stools including change in bowel habits. Benefits and risks were described and informed consent was obtained. DESCRIPTION OF PROCEDURE: The patient had undergone Suprep. The patient had been brought into the operating room and laid in the left lateral decubitus position. After adequate intravenous sedation, the rectum was examined with 2% lidocaine jelly. No external hemorrhoids were encountered. The rectal tone was within normal limits. No lesions were palpated in the rectal vault. An Olympus colonoscope was advanced until the cecum, ileocecal valve and appendiceal orifice were clearly viewed. The prep was good. No scattered diverticulosis was encountered. No colonic polyps were found. Cold forceps biopsies randomly were obtained for microscopic colitis. Retroflexion of the scope demonstrated grade 2 internal hemorrhoids without active bleeding or inflammation. The colon was desufflated. The patient had tolerated the procedure well. Withdrawal time was over 6 minutes. FINDINGS: Aronchick preparation quality scale 2 (1-5) Internal hemorrhoids, grade 2 No external prolapsed hemorrhoids. No arteriovenous malformations. No adenomatous polyps. Cold forceps biopsies obtained for microscopic colitis RECOMMENDATIONS: Lower endoscopy as needed Plan - Discharge Summary Discharge Rx Participant: Yes New Discharge Prescriptions: Continue Loratadine [Claritin] 10 mg PO DAILY Loperamide [Imodium] 2 mg PO Q6HR Gabapentin 300 mg PO Q6HR PRN PRN Reason: Pain Scale 4 To 5 Discharge Medication List Loratadine [Claritin] 10 mg PO DAILY 10/02/22 [History] Gabapentin 300 mg PO Q6HR PRN 12/08/24 [History] Loperamide [Imodium] 2 mg PO Q6HR 12/08/24 [History] Follow up Appointment(s)/Referral(s): Rachel Solitario MD [STAFF PHYSICIAN] - 12/28/24 1:00 pm Patient Instructions/Handouts: Gastritis (DC), Microscopic Colitis (DC) Activity/Diet/Wound Care/Special Instructions: Repeat colonoscopy 3 years, 2027 Discharge Disposition: HOME SELF-CARE
[2024-12-08 11:47] VITALS: BP 108/68; PULSE 78
== END 2024-12-08 11:47 | disposition home or self-care (01) ==
LOC: ORWHC2ENDO 09:27
PROVIDERS: ATTEND Surgery Plastic and Reconstructive Surgery
DX: K21.00 Gastro-esophageal reflux disease with esophagitis, without bleeding (principal); K29.70 Gastritis, unspecified, without bleeding; K52.839 Microscopic colitis, unspecified; E66.01 Morbid (severe) obesity due to excess calories; E78.5 Hyperlipidemia, unspecified; I10 Essential (primary) hypertension; K44.9 Diaphragmatic hernia without obstruction or gangrene; K64.1 Second degree hemorrhoids; F41.9 Anxiety disorder, unspecified; F32.A Depression, unspecified; G43.909 Migraine, unspecified, not intractable, without status migrainosus; J30.2 Other seasonal allergic rhinitis; F17.210 Nicotine dependence, cigarettes, uncomplicated; Z86.0100 Personal history of colon polyps, unspecified; Z88.0 Allergy status to penicillin; Z90.49 Acquired absence of other specified parts of digestive tract; Z98.51 Tubal ligation status; Z98.890 Other specified postprocedural states; Z88.8 Allergy status to other drugs, medicaments and biological substances; Z85.89 Personal history of malignant neoplasm of other organs and systems
CPT/HCPCS: 81025; 88305; 45380; 43239; J2003; J2704